=== PATIENT | female | born 1965 | race Caucasian/White ===

== ENCOUNTER 2025-02-23 10:04 | Outpatient (AMB) | payer MEDICAID, SELFPAY ==
--- OUTSIDE RECORDS SUMMARY | 2025-02-23 10:21 | XMS_ITS | Clinical Summary ---
Author Organization [employer] [facility] Address [address] [place] [address] Care Team Providers Care Patient Placement Coordinator Name Role Phone Carlos Alberto Sarkar MD Primary Care Provider Unavail able Surgical History Surgery Date Site/Laterality Comments TUBAL LIGATION 1991 PROCEDURE: HISTORICAL TUBAL LIGATION SECTION PROCEDURE: HISTORICAL DELIVERY; COMMENT: x 3 Medical History Medical History Date Comments Type II or unspecified type diabetes mellitus without mention of complication, uncontrolled DX:Type II or unspecified t ype diabetes mellitus without mention of complication, uncontrolled Chronic back pain DX:Chronic sunni k pain Dysthymic disorder DX:Dysthymic disorder HTN (hypertension) DX:HTN (hyper tension) Tobacco use DX:Tobacco use Hyperlipidemia DX:Hyperlipidemi a Vitamin D deficiency 06/03/2015 DX:Vitamin D deficiency Insomnia 06/03/2015 DX:Insomnia Anxiety DX:Anxiety; COMM ENT: dr mary hernandez and pilo PVD (peripheral vascular dis ease) ([facility] V24) DX:PVD (peripheral vascular disease) ([facility]); COMMENT: dr whipple DM (diabetes mellitus), type 2 with peripheral vascular complications ([facility]/H[facility] V24, [facility] V28) DX:DM (diabetes mellitus), type 2 with peripheral vascular complications ([facility]) COPD (chronic obstructive pu lmonary disease) ([facility] V24, [facility] V28) DX:COPD (chronic o bstructive pulmonary disease) ([facility]) Family History Medical History Relation Name Comments Diabetes Brother Hypertension Father Diabetes Mother HTN Cervical cancer Other grandmother Breast cancer Neg Hx Colon cancer Neg Hx Ovarian cancer Neg Hx Relation Name Status Comments Brother Father Mother Other Social History Tobacco Use Types Packs/Day Years [...] on file Sexual Orientation Not on file Obstetrics History Plan of Treatment Health Maintenance Due Date Last Done Comments Diabetes: Annual Foot Exam 1974 Diabetes: Annual Retina Eye Exam 1974 Zoster Vaccines (1 of 2) 2014 Pneumococcal Vaccine: 50+ Years (2 of 2 - PCV) 09/29/2018 09/29/2017 Pneumococcal Vaccine: Pediatrics (0 to 5 Years) and At-Risk Patients (6 to 64 Years) (2 of 2 - PCV) 09/29/2018 09/29/2017 Hepatitis B Vaccines (3 of 3 - 19+ 3-dose series) 09/10/2019 04/11/2019, 03/10/2019 Diabetes: Annual GFR (Glomerular Filtration Rate) 02/10/2020 02/09/2019 Breast Cancer Screening 05/26/2020 05/26/2018 Cervical Cancer Screening: P ap Smear 08/25/2021 08/25/2018 Colorectal Cancer Screening: Colonoscopy 08/08/2022 Depression Screening 08/08/2022 Hepatitis C Screening 08/08/2022 Social Influencers of Health Screening 08/08/2022 Diabetes: Annual Urine Albumin-Creatinine Ratio (uACR) 08/21/2022 02/09/2019 Diabetes: Blood Sugar Contro l Test (HGBA1C) 08/21/2022 02/09/2019 Hypertension/CHF/CAD Annual BMP Blood Test 08/21/2022 02/09/2019 Cholesterol Screening (Lipid Panel) 02/10/2024 02/09/2019, 02/09/2019 RSV Immunization Adult Patients (1 - Risk 60-74 years 1-dose series) 2024 COVID-19 Vaccine ( - 2023-2 5 season) 2024 Influenza Vaccine (Season Ended) 2025 08/03/2016, 06/05/2015 DTaP,Tdap,and Td Vaccines (2 - Td or Tdap) 05/03/2028 05/03/2018 HIV Screening Completed 02/09/2019 HIB Vaccines Aged Out No longer eligi ble based on patient's age to complete this topic HPV Vaccines Aged Out No longer eligi ble based on patient's age to complete this topic Hepatitis A Vaccines Aged Out No long er eligible based on patient's age to complete this topic IPV Vaccines Aged Out No longer eligi ble based on patient's age to complete this topic MMR Vaccines Aged Out No longer eligi ble based on patient's age to complete this topic Meningococcal ACWY Vaccine Aged Out N o longer eligible based on patient's age to complete this topic Meningococcal B Vaccine Aged Out No l onger eligible based on patient's age to complete this topic RSV Immunization Patients Under 20 months Aged Out No longer eligible b ased on patient's age to complete this topic Varicella Vaccines Aged Out No longer eligible based on patient's age to complete this topic Procedures Procedure Name Priority Date/Time Associated Diagnosis Comments PAP SMEAR Routine 08/25/2018 SCR MAMMO BI INCL CAD Routine 05/26/2018 11:31 AM EDT Encounter for screening mammogram for malignant neoplasm of breast from Last 3 Months or Most Recently Relevant to Health Maintenance Results * Pap smear (08/25/2018) 08/25/2018 Narrative HISTORICAL TESTING LAB RESULTING AGENCY - 08/29/2018 5:10 PM EST [id number] THINPREP PAP, IMAGED: NEGATIVE FOR SQUAMOUS INTRAEPITHELIAL LESION AND MALIGNANCY . NAIDA DENSON(ASCP) (CASE ELECTRONICALLY SIGNED 08 29 2018) RESULT OF APTIMA HIGH RISK HPV ASSAY: HIGH RISK HPV: NEGATIVE (SEROTYPES 16,18,31,33,35,39,45,51,52,56,58,59,66,68) COMPLETED ON 2018-08-29 ADEQUACY: SATISFACTORY ENDOCERVICAL/TRANSFORMATION ZONE COMPONENT PRESENT. SOURCE: THINPREP PAP HPV ANY DX: REFLEX 16 AND 18, CERVICAL, IMAGED CLINICAL INFORMATION: HPV ANY DIAGNOSIS. Z12.4, Z01.419, MENOPAUSE STENOTIC CERVICAL OS Emily Mabry MD LAB CYTOLOGY ORDERABLES Final Result HISTORICAL TESTING LAB RESULTING AGENCY * SCR MAMMO BI INCL CAD (05/26/2018 11:31 AM EDT) Anatomical Region Laterality Modality Radiographic Vicki ging 09/29/2017 1:40 PM EST Narrative 05/26/2018 3:43 PM EDT This is a summary report. The complete report is available in the patient's medical record. If you cannot access the medical record, please contact the sending organization for a detailed fax or copy. Full field digital screening mammography, reviewed with CAD and compared to previous. The breasts are composed of fatty and fibroglandular tissue. No suspicious mass, architectural distortion or suspicious calcifications are identified. IMPRESSION: : No mammographic evidence of malignancy. BIRADS 1-Negative; N. 5 year breast cancer risk assessment 0.7 % Lifetime breast cancer risk assessment 5.3 % Breast cancer risk category Low (<15%) Procedure Note Chantell Marin MD - 08/25/2022 This is a summary report. The complete report is available in thepatient's medical record. If you cannot access the medical record, pleasecontact the sending organization for a detailed fax or copy. Full field digital screening mammography, reviewed with CAD and comparedto previous. The breasts are composed of fatty and fibroglandular tissue.No suspicious mass, architectural distortion or suspicious calcificationsare identified. IMPRESSION: : No mammographic evidence of malignancy. BIRADS 1-Negative; N. 5 year breast cancer risk assessment 0.7 % Lifetime breast cancer risk assessment 5.3 % Breast cancer risk category Low (<15%) Ashley Page-Haleigh DO IMG XR PROCEDURES Final Result from Last 3 Months or Most Recently Relevant to Health Maintenance Care Teams Patient Placement Coordinator Relationship Specialty Start Date End Date Carlos Alberto Sarkar MD PCP - General Internal Medicine 01/03/18
--- NOTE | 2025-02-23 10:56 | A.SPINEOV_ITS ---
Intake Visit Reasons: sacroiilitis Intake Note: Ms. Bret Bell is here today c/o lower back pain. Recordings Librarian Required: Yes Recordings Librarian Services: Recordings Librarian Present Recordings Librarian Name: Myaa Quiroz LM Information Interpreted: clinical only Allergies No Known Allergies Allergy (Verified 02/23/25 11:06) Assessment & Plan Assessment & Plan (1) Chronic SI joint pain: Code(s): M53.3 - Sacrococcygeal disorders, not elsewhere classified; G89.29 - Other chronic pain Category: Medical Plan Dear Elizabeth, Thank you for referring Mrs Bret Bell to our office today. She is a 59-year-old diabetic female presents for evaluation of diffuse low back pain, that did respond to two subsequent SI joint blocks. I used my health coordinator Maya who is a certified supply chain specialist to help with this visit. The patient reports she has had the pain for a long time, she has had numerous rounds of conservative treatment. She has trialed physical therapy, Tylenol, ibuprofen, injections etc.. She seemed a little bit confused during today's office visit. She thought she was being referred here for surgery on her discs. She was told somewhere along the line that her discs are severely degenerative in that is the cause for her pain. She does describe diffuse back pain. She had a very hard time articulating exactly what was bothering her the most because she has pains all over her body. She also thought at 1 point she was here to discuss her wrist, she had a brace on her wrist in his not clear if she broke it or not but she wanted to discuss that as possible treatment options. PMH: She is a diabetic, has hypertension high cholesterol but has not seen a primary care physician in years. She ran into some problems with her son and has been unable to connect with the doctor for a long time. She currently takes no medication to treat any of these conditions. She is not sure if she has issues with her heart or her lungs are her kidneys. Social hx: She smoke cigarettes, does not use any alcohol or marijuana Medications: Right now she is just taking Tylenol and ibuprofen Allergies: None Physical exam: She walks with a cane she is slow to stand up and has some discomfort in her low back when she stands, she has pain with movement of her legs and thighs that give her pain, has a hard time with OCTAVIANO testing as it does reproduce some pain in her back. Imaging review: She is a lumbar MRI done at [facility] that I was unable to pull up and review, but the radiologist reports she has mild disc degeneration and some facet arthropathy at L4-5 that is been stable over the years. Impression: 59-year-old female presents for evaluation of chronic low back pain diffusely described as along both sides of her low back radiating up the middle of her spinal column. Her situation is a little confusing because she believes she was sent here to be considered for surgery on her lower back, specifically her disc because she was told they were severely degenerative at some point by someone. She was not clear or really having any understanding of what we were talking about when we reviewed the SI joint. She was convinced that she was here to see me about her discs. She did remember having the injections but did not really localize any of her pain to the SI joint. There was some degree of relief however with the injections. I told her that the SI joint could c ertainly be part of what is giving her pain on the left side where the injection was done but it would not explain diffuse pain all along her whole spinal column. She was a little disappointed that we are not going to offer her surgery on her discs, which only shows some mild degeneration. On top of this, she has not seen a primary doctor for very long time, is a diabetic and has history of hypertension high cholesterol and is currently on no medications to treat this. She has no clue what her A1c might be because she has not seen a doctor about her medical issues in quite some time. There is no way we could put her under anesthesia for an SI joint fusion until she is at least checked out by a primary care physician and we have some record of good control of her blood pressure and her A1c. I told her to connect with the provider and come back and see me down the road if her medical issues get treated again and we could reassess the situation. Thank you for allowing us to care for your patient. The total time spent with this visit with this patient was 45 minutes reviewing history, physical exam, lumbar imaging review, and implementation of treatment plan or further diagnostic testing David Painting MD,PhD [facility] Coding Level of Care Code New Pt Level 4 (22379) Diagnoses Chronic SI joint pain M53.3; G89.29
== END 2025-02-23 11:41 | disposition home or self-care (01) ==
PROVIDERS: PCP Nurse Practitioner Family; Referring Provider Nurse Practitioner Family; Visit Provider Physician Assistant
DX: M53.3 Sacrococcygeal disorders, not elsewhere classified (principal); G89.29 Other chronic pain
CPT/HCPCS: 99204

== ENCOUNTER → 2025-02-23 10:04 | Outpatient (BNVA) | payer MEDICAID, SELFPAY | PROVIDERS: PCP Nurse Practitioner Family; Referring Provider Nurse Practitioner Family; Visit Provider Physician Assistant | DX: M53.3 Sacrococcygeal disorders, not elsewhere classified (principal) | CPT/HCPCS: 99212 ==

== ENCOUNTER 2025-06-04 10:55 | Outpatient (REF) | payer MEDICAID, SELFPAY ==
--- OUTSIDE RECORDS SUMMARY | 2024-07-06 11:31 | XMS_ITS | Encounter Summary ---
Author Organization [facility] Address [address] [place] [address] Care Team Providers Care Master Control Supervisor Name Role Phone Carlos Alberto Srakar MD Primary Care Provider Unavail able Encounter Details Date Type Department Care Team ([facility] st Contact Info) Description 07/06/2024 11:31 AM EDT Hospital Encounter TH HISTORIC ENCOUNTERS EASTERN CONVERSION ONLY Fran Betancur, ZAC [address] [place] [id number] Social History Tobacco Use Types Packs/Day Years Used Date Smoking Tobacco: Every Day Cigarettes Smokeless Tobacco: Never Alcohol Use Standard Drinks/Week Comments No 0 (1 standard drink = 0.6 oz pur e alcohol) Comments Unknown Sex and Gender Information Value Date Recorded Sex Assigned at Not on file Legal Sex Female 6:19 PM EST Gender [...] AM EDT Narrative 07/06/2024 11:[address] [facility] Diagnostic Imaging Department [address] [place] [address] [id number] Patient: EMMA WATT /Age/Sex: 1965 - 59 - F Unit#: [id number] Location/Status: [facility]/REG CLI Mnemonic/[facility] Ordering Physician: FRAN BETANCUR APRN CR Hip [...] abnormality is seen. IMPRESSION: Normal examination. Code 56646 Dictating Physician: ASIM SCHUMACHER MD Electronically Signed by: ASIM SCHUMACHER MD Dic Date/Time: 07/06/24 115 Sign date/Time: 07/06/24 115 Procedure Note Asim Schumacher MD - 07/08/2024 [facility] Diagnostic Imaging Department [address] [place] [address] [id number] Patient: EMMA WATT /Age/Sex: 1965 - 59 - F Unit#: [id number] Location/Status: [facility]/REG CLI Mnemonic/[facility]ing [facility] Ordering Physician: FRAN BETANCUR APRN CR Hip [...] abnormality is seen. IMPRESSION: Normal examination. Code 85858 Dictating Physician: ASIM SCHUMACHER MD Electronically Signed by: ASIM SCHUMACHER MD Dic Date/Time: 07/06/24 115 Sign date/Time: 07/06/241157 Fran Betancur PATHOLOGIST ASSISTANT IMG XR PROCEDURES Final Result documented in this encounter Visit Diagnoses Not on filedocumented in this encounter Care Teams Master Control Supervisor Relationship Specialty Start Date End Date Carlos Alberto Sarkar MD PCP - General Internal Medicine 01/03/18 documented as of this encounter
--- OUTSIDE RECORDS SUMMARY | 2025-06-01 10:15 | XMS_ITS | Encounter Summary ---
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 Name Role Phone Kenyatta Morin MD Primary Care Provide r Reason for Referral * Imaging (Routine) - Authorized Specialty Diagnoses / Procedures Referred By Contac t Referred To Contact Radiology Diagnoses Encounter for screening mammogram for malignant neoplasm of breast Procedures BI Mammogram Screening Tomosynthesis Bilateral Kenyatta Morin MD [address] [place] [id number] Phone: tel: fax: [address] Phone: tel: fax: Referral ID Status Reason Start Date Expiration Date V isits Requested Visits Authorized [id number] Authorized 06/01/2025 06/01/2026 1 1 Encounter Details Date Type Department Care Team (Latest Contact Info) Description 06/01/2025 10:15 AM EDT Office Visit [facility] [address] [place] [address] [phone] Kenyatta Morin MD [address] [place] [address] [phone] Screening for colon cancer (Primary Dx); Dietary counseling; Exercise counseling; Encounter for screening mammogram for malignant neoplasm of breast; Chronic obstructive pulmonary disease, unspecified COPD type (CMS/HCC); DM (diabetes mellitus), type 2 with peripheral vascular complications (CMS/HCC); Chronic midline low back pain with bilateral sciatica; Fibromyalgia; Encounter for immunization Social History Tobacco Use Types Packs/Day Years Used Date Smoking Tobacco: Every Day Cigarettes Smokeless Tobacco: Never Tobacco Cessation:Ready to Q uit: Not Asked; Counseling Given: Not Answered Depression Answer Date Recorded Patient Health Questionnaire-9 Score 6 06/01/2025 Patient Health Questionnaire-9 Score 6 06/01/2025 Last PHQ-9: Questionnaire Data Not on file 0 06/01/2025 Housing Stability Answer Date Recorded What is your housing situation today? I have [place] espinal 06/01/[address] you li ve. Do you have problems with any of the following? I am not sure 06/01/2025 Food Insecurity Answer Date Recorded Within the past 12 months, y ou worried that your food would run out before you got money to buy more: Never True 06/01/2025 Within the past 12 months,th e food you bought just didn't last and you didn't have enough money to get more: Never True Transportation Answer Date Recorded In the past 12 months, has l ack of transportation kept you from medical appts, meetings, work or from getting things needed for daily living? No 06/01/2025 Utilities Answer Date Recorded In the past 12 months, has t he electric, gas, oil or water company threatened to shut off services in your home? No 06/01/2025 Depression Answer Date Recorded Patient Health Questionnaire-2 Score 2 06/01/2025 Internet Access Answer Date Recorded Internet Access Q1 Yes 06/01/2025 Internet Access Q2 Not on file 06/01/2025 Comments Unknown Sex and Gender Information Value Date Recorded Sex Assigned at Unknown 06/01/2025 10:18 AM EDT Legal Sex Female 9:25 PM EDT Gender Identity Choose not to disclose 10:18 AM EDT Sexual Orientation Don't know 06/01/2025 10 :18 AM EDT documented as of this encounter Last Filed Vital Signs Vital Sign Reading Time Taken Comments Blood Pressure 130/90 06/01/2025 10:38 AM EDT Pulse 71 06/01/2025 10:38 AM EDT Temperature 33.8 C (92.8 F) 06/01/2025 10:38 AM EDT Respiratory Rate 18 06/01/2025 10:3 8 AM EDT Oxygen Saturation 97% 06/01/2025 10: 38 AM EDT Inhaled Oxygen Concentration - - Weight 70.7 kg (155 lb 12.8 oz) 025 10:38 AM EDT Height 167.6 cm (5' 6 ) 06/01/2025 10:3 8 AM EDT Body Mass Index 25.15 06/01/2025 10:38 AM EDT documented in this encounter Functional Status * Over the past 2 weeks, how often have you been bothered by any of the following problems? Question Answer Date of Assessment Author Patient Health Questionnaire-2 Score 2 05/08 11:11 AM EDT Diamond Amado MA * Little interest or pleasure in doing things Answer Date of Assessment Author Several days 06/01/2025 11:11 AM EDT Lucian Amado MA * Feeling down, depressed, or hopeless Answer Date of Assessment Author Several days 06/01/2025 11:11 AM EDT Lucian Amado MA * Trouble falling or staying asleep, or sleeping too much Answer Date of Assessment Author Several days 06/01/2025 11:11 AM EDT Lucian Amado MA * Feeling tired or having little energy Answer Date of Assessment Author Several days 06/01/2025 11:11 AM EDT Lucian Amado MA * Poor appetite or overeating Answer Date of Assessment Author Several days 06/01/2025 11:11 AM Lucian Booth MA * Feeling bad about yourself - or that you are a failure or have let yourself or your family down Answer Date of Assessment Author Not at all 06/01/2025 11:11 AM Lucian Booth MA * Trouble concentrating on things, such as reading the newspaper or watching television Answer Date of Assessment Author Not at all 06/01/2025 11:11 AM Lucian Booth MA * Moving or speaking so slowly that other people could have noticed? Or the opposite - being so fidgety or restless that you have been moving around a lot more than usual. Answer Date of Assessment Author Several days 06/01/2025 11:11 AM SANDYT Lucian Amado MA * Thoughts that you would be better off or hurting yourself in some way Answer Date of Assessment Author Not at all 06/01/2025 11:11 AM Lucian Booth MA * Patient Health Questionnaire-9 Score Answer Date of Assessment Author 6 06/01/2025 11:11 AM Lucian Booth MA * Over the last 2 weeks, how often have you been bothered by any of the following problems? Question Answer Date of Assessment Author Feeling nervous, anxious, or on edge 3 05/08 11:11 AM Diamond Booth MA Not being able to stop or co ntrol worrying 3 06/01/2025 11:11 AM Diamond Booth MA Worrying too much about diff erent things 2 06/01/2025 11:11 AM Diamond Booth MA Being so restless that it is hard to sit still 3 06/01/2025 11:11 AM Diamond Booth MA Becoming easily annoyed or irritable 2 05/08 11:11 AM Diamond Booth MA Feeling afraid as if somethi ng awful might happen 0 06/01/2025 11:11 AM Diamond Booth MA documented as of this encounter Progress Notes * Kenyatta Parkinson MD - 06/01/2025 10:15 AM EDT SUBJECTIVE: Emma Bell is a 60 y.o. year old adult who presents for New patient . Occupation:disability Lives with:alone - EtOH denies - smoking cigarettes 7 daily - recreational drug use denies Diet:regular Exercise:sedentary Surgeries/Hospitalizations: c-sections X3 Mammogram: not done in a long time Colorguard: ordered today PMHx:chronic lower back pain, neuropathy, chronic sinusitis, depression with anxiety, fibromyalgia,diabetes, COPD, venous insufficiency Medications: gabapentin 300mg at bed time, zolpidem, sertraline 50mg daily FMHx:son has schizophrenia, mother diabetes Immunizations: Reviewed Acute Concerns: Patient reports she has not being taking care of her for a long time know, she tells me she was taking cre of her son and this is the reason why she stop coming to her appointments Patient tells me she has being having acute on chronic pain of her lower back she has being taking acetaminophen and ibuprofen but has not help, she takes gabapentin at night and helps but makes her sleepy, she used to be follow by pain management Social History Social History Narrative Not on file Problem List[1] Family History[2] Review of Systems Constitutional: Negative. HENT: Negative. Respiratory: Negative. Cardiovascular: Negative. Musculoskeletal: Positive for arthralgias, back pain and myalgias. OBJECTIVE: Vitals: 06/01/25 1038 BP: (!) 130/90 BP Location: Left arm Patient Position: Sitting BP Cuff Size: Adult Pulse: 71 Resp: 18 Temp: 92.8 ??F (33.8 ??C) TempSrc: Temporal SpO2: 97% Weight: 155 lb 12.8 oz (70.7 kg) Height: 5' 6 (1.676 m) Physical Exam Constitutional: Appearance: Normal appearance. Cardiovascular: Rate and Rhythm: Normal rate and regular rhythm. Pulmonary: Effort: Pulmonary effort is normal. Breath sounds: Normal breath sounds. Abdominal: General: Abdomen is flat. Palpations: Abdomen is soft. Musculoskeletal: Right lower leg: No edema. Left lower leg: No edema. Neurological: Mental Status: Emma is alert. Follow Up: Follow up for next available PAP smear . Medications Ordered Prior to Encounter[3] Problem List Items Addressed This Visit Encounter for screening mammogram for malignant neoplasm of breast Relevant Orders BI Mammogram Screening Tomosynthesis Bilateral Chronic obstructive pulmonary disease, unspecified COPD type ([facility]/HCC) Stable I prescribed albuterol PRN Relevant Medications albuterol 108 (90 Base) MCG/ACT inhaler DM (diabetes mellitus), type 2 with peripheral vascular complications ([facility]/HCC) A1c 6.7 -Changes: I start her again on metformn 500mg BID and prescribed diabetes supplies - Diabetic eye exam:pending - Diabetic foot exam:pending - Continue lifestyle modifications - Continue current medications - Follow up: 3 months Relevant Medications metFORMIN (Glucophage) 500 MG tablet FREESTYLE LITE test strip Lancets misc Alcohol Swabs 70 % pads Blood Glucose Monitoring Suppl (FreeStyle [place] Lite) w/Device kit Other Relevant Orders CBC auto differential Comprehensive Metabolic Panel HIV-1/2 Antigen and Antibodies, Fourth Generation, with Reflexes Hepatitis C Antibody with Reflex to HCV, RNA, Quantitative, Real-Time PCR Lipid Panel, Standard Vitamin D, 25-Hydroxy, Total, Immunoassay TSH with Reflex to Free T4 POCT Glucose POCT Hgb A1c Chronic midline low back pain with bilateral sciatica I will start her on gabapentin low dose 100mg morning and afternoon she may continue with gabapentin 300mg at bed time Relevant Medications gabapentin (Neurontin) 100 MG capsule Fibromyalgia Relevant Medications gabapentin (Neurontin) 100 MG capsule Other Visit Diagnoses Screening for colon cancer - Primary Relevant Orders Cologuard?? colon cancer screening Dietary counseling Relevant Medications metFORMIN (Glucophage) 500 MG tablet Exercise counseling Relevant Medications metFORMIN (Glucophage) 500 MG tablet Encounter for immunization Relevant Orders PCV-20 VACCINE 6 wks + (Completed) [1] Patient Active Problem List Diagnosis Encounter for screening mammogram for malignant neoplasm of breast Chronic obstructive pulmonary disease, unspecified COPD type (CMS/HCC) DM (diabetes mellitus), type 2 with peripheral vascular complications (CMS/HCC) Chronic midline low back pain with bilateral sciatica Fibromyalgia [2] No family history on file. [3] No current outpatient medications on file prior to visit. No current facility-administered medications on file prior to visit. documented in this encounter Miscellaneous Notes * Assessment & Plan Note - Kenyatta Parkinson MD - 06/01/2025 4:24 PM EDT Associated Problem(s): Chronic obstructive pulmonary disease, unspecified COPD type (CMS/HCC) Stable I prescribed albuterol PRN * Assessment & Plan Note - Kenyatta Parkinson MD - 06/01/2025 4:24 PM EDT Associated Problem(s): Chronic midline low back pain with bilateral sciatica I will start her on gabapentin low dose 100mg morning and afternoon she may continue with gabapentin 300mg at bed time * Assessment & Plan Note - Kenyatta Parkinson MD - 06/01/2025 4:23 PM EDT Associated Problem(s): DM (diabetes mellitus), type 2 with peripheral vascular complications (CMS/HCC) A1c 6.7 -Changes: I start her again on metformn 500mg BID and prescribed diabetes supplies - Diabetic eye exam:pending - Diabetic foot exam:pending - Continue lifestyle modifications - Continue current medications - Follow up: 3 months documented in this encounter Plan of Treatment Upcoming Encounters Date Type Department Care Team (Late st Contact Info) Description 08/10/2025 9:45 AM EST Procedure Visit [facility] [address] [place] [address] Kenyatta Morin MD [address] [place], [place] [phone] Scheduled Orders Name Type Priority Associated Diagnoses Orde r Schedule BI Mammogram Screening Tomosynthesis Bilateral Imaging Routine Encounter for screening mammogram for malignant neoplasm of breast Expected: 06/01/2025, Expires: 08/01/2026 Cologuard colon cancer screening Lab Routine Screening for colon cancer Ordered: 06/01/2025 CBC auto differential Lab Routine DM (diabetes mellitus), type 2 with peripheral vascular complications (CMS/HCC) Expected: 06/01/2025 (Approximate), Expires: 06/01/2026 Comprehensive Metabolic Panel Lab Routine DM (diabetes mellitus), type 2 with peripheral vascular complications (CMS/HCC) Expected: 06/01/2025 (Approximate), Expires: 06/01/2026 HIV-1/2 Antigen and Antibodies, Fourth Generation, with Reflexes Lab Routine DM (diabetes mellitus), type 2 with peripheral vascular complications (CMS/HCC) Expected: 06/01/2025 (Approximate), Expires: 06/01/2026 Hepatitis C Antibody with Reflex to HCV, RNA, Quantitative, Real-Time PCR Lab Routine DM (diabetes mellitus), type 2 with peripheral vascular complications (CMS/HCC) Expected: 06/01/2025, Expires: 06/01/2026 Lipid Panel, Standard Lab Routine DM (diabetes mellitus), type 2 with peripheral vascular complications (CMS/HCC) Expected: 06/01/2025 (Approximate), Expires: 06/01/2026 Vitamin D, 25-Hydroxy, Total, Immunoassay Lab Routine DM (diabetes mellitus), type 2 with peripheral vascular complications (CMS/HCC) Expected: 06/01/2025 (Approximate), Expires: 06/01/2026 TSH with Reflex to Free T4 Lab Routine DM (diabetes mellitus), type 2 with peripheral vascular complications (CMS/HCC) Expected: 06/01/2025 (Approximate), Expires: 06/01/2026 POCT Glucose Point of Care Testing Routine DM (diabetes mellitus), type 2 with peripheral vascular complications (CMS/HCC) Ordered: 06/01/2025 POCT Hgb A1c Point of Care Testing Routine DM (diabetes mellitus), type 2 with peripheral vascular complications (CMS/HCC) Ordered: 06/01/2025 documented as of this encounter Visit Diagnoses Diagnosis Screening for colon cancer- Primary Special screening for malignant neoplasms, colon Dietary counseling Dietary surveillance and counseling Exercise counseling Encounter for screening mammogram for malignant neoplasm of breast Chronic obstructive pulmonary disease, unspecified COPD type (CMS/HCC) (HCC) DM (diabetes mellitus), type 2 with peripheral vascular complications (HCC) Type II or unspecified type diabetes mellitus with peripheral circulatory disorders, not stated as uncontrolled Chronic midline low back pain with bilateral sciatica Fibromyalgia Unspecified myalgia and myositis Encounter for immunization documented in this encounter Additional Health Concerns Assessment Noted Time PHQ-9 Depression Total Score: 6 06/01/20 25 11:11 AM EDT documented as of this encounter Care Teams Sewing Machine Operator Plastic Zipper Relationship Specialty Start Date End Date Kenyatta Morin MD [address] [place] [id number] PCP - General Internal Medicine 06/01/25 documented as of this encounter
--- OUTSIDE RECORDS SUMMARY | 2025-06-04 12:28 | XMS_ITS | Clinical Summary ---
Author Organization [employer] Address [address] [facility] [address] [place] [address] Care Team Providers Care Smash Piecer Name Role Phone Kenyatta Morin MD Primary Care Provide r Allergies No known active allergies Medications albuterol 108 (90 Base) MCG/ACT inhalerIndications :Chronic obstructive pulmonary disease, unspecified COPD type (CMS/HCC) (HCC) Inhale 2 puffs every 4 (four) hours if needed for wheezing. 18 g 2 5 06/01/20 Active gabapentin (Neurontin) 100 MG capsuleIndications :Chronic midline low back pain with bilateral sciatica Take 1 capsule (100 mg) by mouth 2 times daily. 60 capsule 2 5 06/01/20 Active metFORMIN (Glucophage) 500 MG tabletIndications: DM (diabetes mellitus), type 2 with peripheral vascular complications (HCC) Take 1 tablet (500 mg) by mouth with breakfast and with evening meal. 60 tablet 11 5 06/01/20 Active FREESTYLE LITE test stripIndications:D M (diabetes mellitus), type 2 with peripheral vascular complications (HCC) Use to test blood sugar 1 times daily 100 each 12 5 06/01/20 Active Lancets miscIndications:DM (diabetes mellitus), type 2 with peripheral vascular complications (HCC) Use to test blood sugar 1 times daily 100 each 5 Active Alcohol Swabs 70 % padsIndications:DM (diabetes mellitus), type 2 with peripheral vascular complications (HCC) Use to test blood sugar 1 times daily 100 each 5 Active Blood Glucose Monitoring Suppl (FreeStyle [place] Lite) w/Device kitIndications:DM (diabetes mellitus), type 2 with peripheral vascular complications (HCC) Use to test blood sugar 1 times daily 1 kit 5 Active Active Problems Problem Noted Date Diagnosed Date Encounter for screening mamm ogram for malignant neoplasm of breast 06/01/2025 Chronic obstructive pulmonar y disease, unspecified COPD type (CMS/HCC) 06/01/2025 Assessment & Plan (06/01/2025 4:24 PM EDT): Stable I prescribed albuterol PRN DM (diabetes mellitus), type 2 with peripheral vascular complications 06/01/2025 Assessment & Plan (06/01/2025 4:23 PM EDT): A1c 6.7 -Changes: I start her again on metformn 500mg BID and prescribed diabetes supplies - Diabetic eye exam:pending - Diabetic foot exam:pending - Continue lifestyle modifications - Continue current medications - Follow up: 3 months Chronic midline low back pain with bilateral sci atica 06/01/2025 Assessment & Plan (06/01/2025 4:24 PM EDT): I will start her on gabapentin low dose 100mg morning and afternoon she may continue with gabapentin 300mg at bed time Fibromyalgia 06/01/2025 Encounters Date Type Department Care Team Description 06/01/2025 10:15 AM EDT Office Visit [facility] [address] [place] [address] Kenyatta Morin MD Screening for colon cancer (Primary Dx); Dietary counseling; Exercise counseling; Encounter for screening mammogram for malignant neoplasm of breast; Chronic obstructive pulmonary disease, unspecified COPD type (CMS/HCC); DM (diabetes mellitus), type 2 with peripheral vascular complications (CMS/HCC); Chronic midline low back pain with bilateral sciatica; Fibromyalgia; Encounter for immunization 06/01/2025 Travel 06/01/2025 Telephone [facility] [address] [place] [address] Roslyn Aranda MD New Patient appt 03/27/2025 Population Health Risk Score [facility] ([facility] Department [address] [place] [phone] Provider, Population Health Generic from Last 3 Months Immunizations Immunization Administration Dates Next Due Hep B, adult 04/11/2019,03/10/2019 Influenza, IIV3, injectable 08/03/2016, 5 Influenza, seasonal, injectable, preservative fr ee 08/03/2016,06/05/2015 Pneumococcal Conjugate PCV 20 06/01/2025 Pneumococcal Polysaccharide PPSV23 09/29/2017 Tdap 05/03/2018 Social History Tobacco Use Types Packs/Day Years [...] Don't know 06/01/2025 10 :18 AM EDT Last Filed Vital Signs Vital Sign Reading [...] Mass Index 25.15 06/01/2025 10:38 AM EDT Plan of Treatment Upcoming Encounters Date Type Department Care Team (Late st Contact Info) Description 08/10/2025 9:45 AM EST Procedure Visit [facility] [address] [place] [address] Kenyatta Morin MD [address], [place] [phone] Health Maintenance Due Date Last Done Comments CT Colonography 1964 Colonoscopy 1964 Colorectal Cancer Screening 1964 Diabetes: Hemoglobin A1C 1964 FIT DNA/Cologuard 1964 FIT 1964 FOBT 1964 Lipid Panel 1964 Sigmoidoscopy 1964 Disability Screening 1964 Diabetes: Foot Exam 1974 Eye Exam 1974 Hepatitis C Screening 1982 Diabetes: Urine Protein Screening 1983 Pap Smear 1985 Cervical Cancer Screening 1994 HPV/Cotest 1994 Mammogram 2004 Zoster Vaccines (1 of 2) 2014 Hepatitis B Vaccines (3 of 3 - 19+ 3-dose series) 09/10/2019 04/11/2019, 03/10/2019 RSV Patients and Patients Aged 60 years or older (1 - Risk 60-74 years 1-dose series) 2024 COVID-19 Vaccine ( season) 2025 Influenza Vaccine (#1) 2025 6, 08/03/2016, 06/05/2015, Additional history exists Alcohol/Substance Use Screening 06/01/2026 06/01/2025 Depression Screening 06/01/2026 06/01/2025, 06/01/20 25 SDOH Screening 06/01/2026 06/01/2025 Tobacco Screening 06/01/2026 06/01/2025 DTaP/Tdap/Td Vaccines (2 - Td or Tdap) 05/03/2028 05/03/2018 HIV Screening Completed 02/09/2019 Pneumococcal Vaccine: 50+ Years Completed 06/01/2025, 09/29/2017 HIB Vaccines Aged Out No longer eligi [...] patient's age to complete this topic Meningococcal Vaccine Aged Out No chris robbie eligible based on patient's age to complete this topic RSV under 20 months Aged Out No longe r eligible based on patient's age to complete this topic Rotavirus Vaccines Aged Out No longer eligible based on patient's age to complete this topic Insurance [facility] C3 Care Teams Smash Piecer Relationship Specialty Start Date End Date Kenyatta Morin MD [address] [place] [id number] PCP - General Internal Medicine 9/26/25
--- OUTSIDE RECORDS SUMMARY | 2025-06-04 12:28 | XMS_ITS | Clinical Summary ---
Author Organization [facility] Address [address] [place] [address] Care Team Providers Care Estimator And Drafter Name Role Phone Vita Lee MIXED LIVESTOCK FARM WORKER Primary Care Provider [phone] Source Comments PLEASE NOTE, if this patient is a minor, it may be UNLAWFUL to discuss sensitive information that is contained in these records (such as FAMILY PLANNING, MENTAL HEALTH or SUBSTANCE ABUSE) with the minor patient's parent or other person without the patient's specific authorization.[facility] Allergies No known active allergies Medications insulin syringe-needle U-100 0.5 mL 31 gauge x 01/19 1 Syringe by NOT APPLICABLE route 8 Active buPROPion HCl (WELLBUTRIN XL) 150 mg 24 hr tablet 8 Active fluticasone propionate (FLONASE) 50 mcg/actuation nasal spray 2 sprays each nostril twice daily x 1 week then once daily as needed. 8 Active FREESTYLE LITE STRIPS strips U TO TEST BLOOD SUGAR TID 4 9 Active fluticasone propionate (FLOVENT HFA) 110 mcg/actuation inhalerIndication s:Chronic obstructive pulmonary disease, unspecified COPD type (CMS & HHS-HCC) Inhale 1 Puff into the lungs 2 (two) times daily Rinse mouth after use 1 Inhaler 1 9 Active albuterol sulfate 90 mcg/actuation inhalerIndication s:Chronic obstructive pulmonary disease, unspecified COPD type (CMS & HHS-HCC) Inhale 2 Puffs into the lungs every 4 (four) hours as needed for shortness of breath or wheezing 1 Inhaler 1 9 Active gabapentin (NEURONTIN) 100 mg capsuleIndication s:Chronic bilateral low back pain without sciatica Take 1 Cap by mouth 3 (three) times daily For nerve pain 60 Cap 9 Active metFORMIN (GLUCOPHAGE) 1,000 mg tabletIndications :Uncontrolled type 2 diabetes mellitus with hyperglycemia ([facility]) Take 1 Tab by mouth 2 (two) times daily with a meal 180 Tab 1 0 Active fluticasone furoate (ARNUITY ELLIPTA) 100 mcg/actuation dsdv Inhale 1 Puff into the lungs 9 Active glipiZIDE (GLUCOTROL) 5 mg tabletIndications :Uncontrolled type 2 diabetes mellitus with hyperglycemia ([facility]) Take 1 Tab by mouth 2 (two) times daily with a meal For diabetes 60 Tab 2 0 Active omeprazole (PRILOSEC) [address] capsuleIndication s:Acute superficial gastritis without hemorrhage Take 1 Cap by mouth 2 (two) times daily before a meal For gastritis 60 Cap 2 0 Active alum-mag hydroxide-simeth (MAALOX PLUS) 400-400-40 mg/5 mL suspensionIndicat ions:Acute superficial gastritis without hemorrhage Take 15 mL by mouth every 8 (eight) hours as needed for indigestion 335 mL 2 0 Active atorvastatin (LIPITOR) 80 mg tabletIndications :Hypercholesterol emia TOME RODOLFO TABLETA POR VIA ORAL [place] (FOR CHOLESTEROL) 30 Tab 2 0 Active sertraline (ZOLOFT) 100 mg tablet Take 100 mg by mouth once daily 3 Active zolpidem (AMBIEN) 5 mg tablet Take 5 mg by mouth nightly at bedtime as needed 3 Active methocarbamoL (ROBAXIN) 750 mg tabletIndications :Chronic left-sided low back pain with left-sided sciatica Take 1 Tablet by mouth 3 (three) times daily 30 Tablet 3 Active meloxicam (MOBIC) 15 mg tabletIndications :Chronic left-sided low back pain with left-sided sciatica Take 1 Tablet by mouth once daily 90 Tablet 3 Active Active Problems Problem Noted Date Diagnosed Date Uncontrolled type 2 diabetes mellitus with hyperglycemia ([facility]) 05/29/2020 Dysthymic disorder 01/18/2019 Type II diabetes mellitus wi th peripheral circulatory disorder ([facility]) 01/18/2019 Tobacco use 01/18/2019 Chronic back pain 01/18/2019 Vitamin D deficiency 06/03/2015 PVD (peripheral vascular disease) ([facility] V24) Overview (01/18/2019): Left varicose vein: surgery in past. Insomnia Hyperlipidemia Diabetes mellitus type 2, insulin dependent ([facility]) Fibromyalgia Depression COPD (chronic obstructive pu lmonary disease) ([facility]) Chronic low back pain Overview (01/18/2019): Herniated disk. No record from pain DrLidia Used to take tramadol from [facility]. No Xray found in [facility] record in Epic. Assessment & Plan (01/18/2019 10:10 AM EDT): Stop tramadol. Start diclofenac. Ref to pain management. Breast cancer screening Overview (01/18/2019): SCR MAMMO BI INCL CAD (05/26/2018 11:31 AM) SCR MAMMO BI INCL CAD (05/26/2018 11:31 AM) Impressions : No mammographic evidence of malignancy. Immunizations Immunization Administration Dates Next Due Hep B, Adult/Adol (OAUXZTN-F-QNDHB/RECOMBIVAX-AD ULT) 04/11/2019,03/10/2019 INFLUENZA, SEASONAL, INJECTABLE 08/03/2016,06/05 PNEUMOCOCCAL POLYSACCHARIDE PPV23 (Pneumovax 23) 09/29/2017 TDAP 05/03/2018 Family History Medical History Relation Name Comments Diabetes Brother Hypertension Father Cancer Maternal Grandmother Hypertension Mother Relation Name Status Comments Brother Father Maternal Grandmother cervica l Mother Social History Tobacco Use Types Packs/Day Years Used Date Smoking Tobacco: Every Day Cigarettes Smokeless Tobacco: Never Tobacco Cessation:Ready to Q uit: Not Asked; Counseling Given: Not Answered Alcohol Use Standard Drinks/Week Comments Not Currently 0 (1 standard drink = 0.6 oz pur e alcohol) Social Connections Answer Date Recorded Connectedness 0 05/27/2024 Financial Resource Strain Answer Date R ecorded Financial Resource Strain 0 2018 Stress Answer Date Recorded Stress 0 05/01/2019 Physical Activity Answer Date Recorded Physical Activity 0 05/01/2019 Food Insecurity Answer Date Recorded Food 0 06/01/2024 Transportation Needs Answer Date Record ed Transportation 0 05/01/2019 Housing Stability Answer Date Recorded Housing 0 05/01/2019 Safety and Environment Answer Date Yasmani rded Safety 0 05/01/2019 Utilities Answer Date Recorded Utilities 0 05/01/2019 Employment Answer Date Recorded Stress 0 05/27/2024 Comments No Sex and Gender Information Value Date Recorded Sex Assigned at Female 01/18/2019 6:10 AM PDT Legal Sex Female 8:37 AM PDT Gender Identity Female 01/18/2019 6:10 AM PDT Sexual Orientation Straight 01/18/2019 6: 10 AM PDT Last Filed Vital Signs Vital Sign Reading Time Taken Comments Blood Pressure 112/70 03/11/2023 12:59 PM EDT Pulse 70 03/11/2023 12:59 PM EDT Temperature 36.9 C (98.5 F) 03/11/2023 12:59 PM EDT Respiratory Rate 18 03/11/2023 12:59 PM EDT Oxygen Saturation 98% 03/11/2023 12:59 PM EDT Inhaled Oxygen Concentration - - Weight 72.2 kg (159 lb 1.6 oz) 03/11/2023 12:59 PM EDT Height 167.6 cm (5' 6 ) 03/10/2019 9:42 AM EDT Body Mass Index 25.68 03/10/2019 9:42 AM EDT Plan of Treatment Health Maintenance Due Date Last Done Comments Anxiety Screening 1964 Dental Examination 1964 Diabetes Foot Exam 1964 HPV Screening 1964 Pap + HPV 1964 Tobacco Cessation Counseling (#1) 1964 Tobacco Screening 1964 Retinopathy Screening 1977 Cervical Cancer Screening 1985 Pap Smear 1985 Breast Cancer Screening (Mammogram) 2004 CT Colonography 2009 Colonoscopy 2009 Colorectal Cancer Screening 2009 FIT/gFOBT 2009 Fecal DNA 2009 Flexible Sigmoidoscopy 2009 Imm-Zoster, Recombinant (1 of 2) 2014 Imm-Pneumococcal 50+ (2 of 2 - PCV) 09/29/201809/29 Depression Monitoring 04/20/2019 01/18/2019 Hemoglobin A1c 08/11/2019 02/09/2019 Imm-Hepatitis B (3 of 3 - 19 + 3-dose series) 09/10/2019 04/11/2019, 03/10/2019 Lipid Screening 02/10/2020 02/09/2019 Serum Creatinine 02/10/2020 02/09/2019 Urine Albumin Creatinine Ratio Screening 02/10/2020 02/09/2019 Hypertension Screening (#1) 03/10/2024 Alcohol and Drug Screen 09/06/2024 01/18/2019 Hpc-[id number]-23 ( season) 2025 Imm-Influenza (#1) 2025 08/03/2016, 06/05/2015 Imm-DTaP/Tdap/Td (2 - Td or Tdap) 05/03/2028 018 HIV Screening Completed 02/09/2019 Hepatitis C Screening Completed 02/09/2019 Cervical Ablation/Cold-Knife Conization Discontinued Cervical Cryotherapy Discontinued Colposcopy Discontinued Endometrial Biopsy Discontinued Excision/Leep Discontinued HPV Genotyping Discontinued Vaginal Pap Discontinued Vulvoscopy Discontinued Procedures Procedure Name Priority Date/Time Associated Diagnosis Comments ANTIBODY HIV-1&HIV-2 SINGLE RESULT Routine 02/09/2019 10:26 AM EDT Uncontrolled type 2 diabetes mellitus with hyperglycemia (HCC-CMS) COMPREHENSIVE METABOLIC PANEL Routine 02/09/2019 10:26 AM EDT Uncontrolled type 2 diabetes mellitus with hyperglycemia (HCC-CMS) HEPATITIS A,B,C PANEL Routine 02/09/2019 10:26 AM EDT Uncontrolled type 2 diabetes mellitus with hyperglycemia (HCC-CMS) LIPID PANEL Routine 02/09/2019 10:26 AM EDT Uncontrolled type 2 diabetes mellitus with hyperglycemia (HCC-CMS) HEMOGLOBIN GLYCOSYLATED A1C Routine 02/09/2019 10:26 AM EDT Uncontrolled type 2 diabetes mellitus with hyperglycemia (HCC-CMS) MICROALBUMIN/CREATINI NE RATIO, URINE, RANDOM Routine 02/09/2019 10:22 AM EDT Uncontrolled type 2 diabetes mellitus with hyperglycemia (HCC-CMS) from Last 3 Months or Most Recently Relevant to Health Maintenance Results * HEPATITIS A,B,C PANEL (02/09/2019 10:26 AM EDT) HEPATITIS B SURFACE ANTIBODY NEGATIVE NEGATIVE [facility] HEPATITIS B SURFACE ANTIGEN NEGATIVE NEGATIVE [facility] Comment: Over the counter supplements containing high doses of biotin may interfere with this assay. If interference is suspected, patients shoud be retested after refraining from biotin supplements for 72 hours. HEPATITIS C VIRUS DIAGNOSTIC NEGATIVE NEGATIVE [facility] Blood specimen (specimen) Blood / Unknown 02/09/2019 10:26 AM EDT 02/09/2019 4:43 PM EDT [facility] - 02/09/2019 6:26 PM EDT [employer], [place] [address] Psychology Physician - Mirian Mckeon MD PT ID [id number] ORD# [id number] Vita Lee [facility] - BLOOD DRAW Edited [place] [address], * HIV-1 & HIV-2 ANTIBODIES (02/09/2019 10:26 AM EDT) Pathologist [facility] HIV 1 AND 2 ANTIBODY SCREEN NEGATIVE NEGATIVE [facility] Comment: This assay is a 4th generation assay allowing for earlier detection of HIV infection by detecting the presence of the HIV-1 p24 antigen as well as the traditional antibodies to HIV type 1 (including group O) and type 2. Use of a 4th generation assay is the current CDC recommendation for HIV screening. Blood specimen (specimen) Blood / Unknown 02/09/2019 10:26 AM EDT 02/09/2019 4:43 PM EDT [facility] - 02/09/2019 6:55 PM EDT [facility], a member of [address] [address] Psychology Physician - Mirian Mckeon MD PT ID [id number] ORD# [id number] Vita Lee [employer] [facility] - BLOOD DRAW Final Result [address] [address], * (ABNORMAL) HEMOGLOBIN, GLYCOSYLATED (A1C) (02/09/2019 10:26 AM EDT) GLYCATED HEMOGLOBIN A1C 7.6(H) <6.5 % [facility] ESTIMATED AVERAGE GLUCOSE 171 mg/dL [facility] Blood specimen (specimen) Blood / Unknown 02/09/2019 10:26 AM EDT 02/09/2019 4:43 PM EDT Narrative [facility] - 02/09/2019 8:33 PM EDT [facility], a member of [address] [address] Psychology Physician - Mirian Mckeon MD PT ID [id number] ORD# [id number] Vita Gurosibel [facility] - BLOOD DRAW Final Result [address] [address], * LIPID PANEL (02/09/2019 10:26 AM EDT) CHOLESTEROL 182 0 - 200 mg/dL [facility] TRIGLYCERIDES 115 0 - 150 mg/dL [facility] HDL CHOLESTEROL 61 >40 mg/dL [facility] LDL CALCULATED 98 0 - 100 mg/dL [facility] TC-HDLC RATIO 3.0 0 - 4.4 mg/dL [facility] Blood specimen (specimen) Blood / Unknown 02/09/2019 10:26 AM EDT 02/09/2019 4:43 PM EDT Narrative [facility] - 02/09/2019 6:05 PM EDT [facility], a member of [address] [address] Psychology Physician - Mirian Mckeon MD PT ID [id number] ORD# [id number] Vita Lee [employer] [facility] - BLOOD DRAW Edited Result - Final [address] [address], * (ABNORMAL) COMPRE METAB PANEL (CMP) (02/09/2019 10:26 AM EDT) GLUCOSE 164(H) 70 - 100 mg/dL [facility] Comment:Reference range appl icable to fasting specimens only BUN 13 5 - 25 mg/dL [facility] CREAT 0.93 0.5 - 1.1 mg/dL [facility] GLOMERULAR FILTRATION RATE > 60 [facility] Comment: If patient is -Macedonian, multiply result by 1.21 Chronic Kidney Disease: < 60 ml/min/1.73 square meters Kidney Failure: < 15 ml/min/1.73 square meters SODIUM 138 133 - 145 mmol/L [facility] POTASSIUM 4.2 3.5 - 5.5 mmol/L [facility] CHLORIDE 104 96 - 110 mmol/L [facility] CO2 27 21 - 32 mmol/L [facility] ANION GAP 7 3 - 11 [facility] CALCIUM 9.6 8.5 - 10.5 mg/dL [facility] TOTAL PROTEIN 7.3 6.0 - 8.0 G/dL [facility] ALBUMIN 4.0 3.2 - 5.0 G/dL [facility] BILI, TOTAL 0.4 0.0 - 1.4 mg/dL [facility] SGOT 22 10 - 42 U/L [facility] SGPT 26 10 - 60 U/L [facility] ALK PHOS 113 42 - 121 U/L [facility] Blood specimen (specimen) Blood / Unknown 02/09/2019 10:26 AM EDT 02/09/2019 4:43 PM EDT [facility] - 02/09/2019 6:05 PM EDT [facility], a member of [address] [address] Psychology Physician - Mirian Mckeon MD PT ID [id number] ORD# [id number] Vitapapo Lee [facility] - BLOOD DRAW Edited Result - Final Performing Organization Address City/[facility]/ZIP Co de Phone Number [address] [address], [place] [phone] * MICROALBUMIN/CREATININE RATIO, URINE, RANDOM (02/09/2019 10:22 AM EDT) CREATININE, RANDOM URINE 78 mg/dL [facility] Urine specimen (specimen) Urine specimen / Unknown 02/09/2019 10:22 AM EDT 02/09/2019 4:[address] [facility] - 02/09/2019 6:17 PM EDT [facility], a member of [address] [address] Psychology Physician - Mirian Mckeon MD PT ID [id number] ORD# [id number] Vita Lee [employer] [facility] URINE AMBULATORY Final Res ult [address] [address], [place] [phone] from Last 3 Months or Most Recently Relevant to Health Maintenance Insurance [facility] Care Teams Estimator And Drafter Relationship Specialty Start Date End Date Vita Lee FNP [facility] [place] [address] PCP - General Internal Medicine 01/11/19
--- OUTSIDE RECORDS SUMMARY | 2025-06-04 12:28 | XMS_ITS | Encounter Summary ---
Author Organization [employer] Address [address] [place] [address] Care Team Providers Care Building Construction Ironworker Name Role Phone Kenyatta Morin MD Primary Care Provide r Reason for Visit * Reason Onset Date Comments New Patient appt 06/01/2025 Encounter Details Date Type Department Care Team (Late st Contact Info) Description 06/01/2025 Telephone [facility] [address] [place], [place] [phone] Roslyn Aranda MD [address] [place], [place] [phone] New Patient appt Social History Tobacco Use Types Packs/Day Years Used Date Smoking Tobacco: Every Day Cigarettes Smokeless Tobacco: Never Depression Answer Date Recorded Patient Health Questionnaire-9 [...] AM EDT documented as of this encounter Functional Status * Over the past 2 weeks, how often have you been bothered by any of the following problems? Question Answer Date of Assessment Author Patient Health Questionnaire-2 Score 2 05/08 11:11 AM SANDYT Diamond Amado MA * Little interest or pleasure in doing things Answer Date of Assessment Author Several days 06/01/2025 11:11 AM SANDYT Lucian Amado MA * Feeling down, depressed, or hopeless Answer Date of Assessment Author Several days 06/01/2025 11:11 AM SANDYT Lucian Amado MA * Trouble falling or staying asleep, or sleeping too much Answer Date of Assessment Author Several days 06/01/2025 11:11 AM Lucian Booth MA * Feeling tired or having little energy Answer Date of Assessment Author Several days 06/01/2025 11:11 AM Lucian Booth MA * Poor appetite or overeating Answer [...] 11:11 AM EDT Lucian Amado MA * Thoughts that you would be better off or hurting yourself in some way Answer Date of Assessment Author Not at all 06/01/2025 11:11 AM EDT Lucian Amado MA * Patient Health Questionnaire-9 Score Answer Date of Assessment Author 6 06/01/2025 11:11 AM EDT Lucian Amado MA * Over the last 2 weeks, how often have you been bothered by any of the following problems? Question Answer Date of Assessment Author Feeling nervous, anxious, or on edge 3 05/08 11:11 AM EDT Diamond Amado MA Not being able to stop or co ntrol worrying 3 06/01/2025 11:11 AM EDT Diamond Amado MA Worrying too much about diff erent things 2 06/01/2025 11:11 AM EDT Diamond Amado MA Being so restless that it is hard to sit still 3 06/01/2025 11:11 AM EDT Diamond Amado MA Becoming easily annoyed or irritable 2 05/08 11:11 AM SANDYT Diamond Amado MA Feeling afraid as if somethi ng awful might happen 0 06/01/2025 11:11 AM SANDYT Diamond Amado MA documented as of this encounter Miscellaneous Notes * Telephone Encounter - Lizeth Brandon - 06/01/2025 10:09 AM EDT Emma Bell was seen by insurance enrollment department and can have a new patient appointment scheduled. Diabetes without any meds, Back issues, depression and anxiety conditions. documented in this encounter Plan of Treatment Upcoming Encounters Date Type Department Care Team (Late st Contact Info) Description 08/10/2025 9:45 AM EST Procedure Visit [facility] [address] [place] [address] Kenyatta Morin MD [address] [place], [place] [phone] documented as of this encounter Visit Diagnoses Not on filedocumented in this encounter Additional Health Concerns Assessment Noted Time PHQ-9 Depression Total Score: 6 06/01/20 25 11:11 AM EDT documented as of this encounter Care Teams Building Construction Ironworker Relationship Specialty Start Date End Date Kenyatta Morin MD [address] [place] [address] PCP - General Internal Medicine 06/01/25 documented as of this encounter
--- OUTSIDE RECORDS SUMMARY | 2025-06-04 12:28 | XMS_ITS | Encounter Summary ---
Author Organization [employer] Address [address] [place] [address] Care Team Providers Care Buttermaker Continuous Churn Name Role Phone Kenyatta Morin MD Primary Care Provide r Encounter Details Date Type Department Care Team (Latest Contact Info) Description 06/01/2025 Travel Social History Tobacco Use Types Packs/Day Years [...] 11:11 AM Lucian Booth MA * Trouble falling or staying asleep, [...] 06/01/2025 11:11 AM Lucian Booth MA * Thoughts that you would be [...] annoyed or irritable 2 05/08 11:11 AM EDT Diamond Amado MA Feeling afraid as if somethi ng awful might happen 0 06/01/2025 11:11 AM EDT Diamond Amado MA documented as of this encounter Plan of Treatment Upcoming Encounters Date Type Department Care Team (Late st Contact Info) Description 08/10/2025 9:45 AM EST Procedure Visit [facility] MEDICINE [address] [place], [place] [phone] Kenyatta Morin MD [address] [place] [address] documented as of this encounter Visit Diagnoses Not on filedocumented in this encounter Additional Health Concerns Assessment Noted Time PHQ-9 Depression Total Score: 06/01/20 11:11 AM EDT documented as of this encounter Care Teams Buttermaker Continuous Churn Relationship Specialty Start Date End Date Kenyatta Morin MD [address] [place], [place] [phone] PCP - General Internal Medicine 06/01/25 documented as of this encounter
--- OUTSIDE RECORDS SUMMARY | 2025-06-04 12:28 | XMS_ITS | Clinical Summary ---
Author Organization [facility] Address [address] [place] [address] Care Team Providers Care Mangle Catcher Name Role Phone Carlos Alberto Sarkar MD [...] and pilo PVD (peripheral vascular dis ease) ([facility] V24) DX:PVD (peripheral vascular disease) ([facility]); COMMENT: dr whipple DM (diabetes mellitus), type 2 with peripheral vascular complications ([facility]/HCC V24, [facility] V28) DX:DM (diabetes mellitus), type 2 with peripheral vascular complications ([facility]) COPD (chronic obstructive pu lmonary disease) ([facility] V24, [facility] V28) DX:COPD (chronic o bstructive pulmonary disease) ([facility]) Family History Medical History Relation Name Comments [...] 08/25/2021 08/25/2018 Colorectal Cancer Screening: Colonoscopy 08/08/2022 Hepatitis C Screening 08/08/2022 Social Influencers of Health Screening 08/08/2022 Diabetes: Annual Urine Albumin-Creatinine Ratio (uACR) 08/21/2022 02/09/2019 Diabetes: Blood Sugar Contro l Test (HGBA1C) 08/21/2022 02/09/2019 Hypertension/CHF/CAD Annual BMP Blood Test 08/21/2022 02/09/2019 Cholesterol Screening (Lipid Panel) 02/10/2024 02/09/2019, 02/09/2019 RSV Immunization Adult Patients (1 - Risk 60-74 years 1-dose series) 2024 Depression Screening 09/06/2024 COVID-19 Vaccine (1 - 2023-2 5 season) 2025 Influenza Vaccine (#1) 2025 6, 06/05/2015 DTaP,Tdap,and Td Vaccines (2 - Td [...] RESULTING AGENCY - 08/29/2018 5:10 PM EST [id number] THINPREP PAP, IMAGED: NEGATIVE FOR SQUAMOUS INTRAEPITHELIAL [...] Recently Relevant to Health Maintenance Care Teams Mangle Catcher Relationship Specialty Start Date End Date Carlos Alberto Sarkar MD PCP - General Internal Medicine 01/03/18
[2025-06-04 13:17] LABS: MANUAL DIFF FLAG NO
[2025-06-04 13:30] LABS: Hematocrit 47.1 % (37.0-47.0); Hemoglobin 15.4 g/dl (12.0-16.0); Imm Gran Abs Auto 0.02 X10*3/uL (0.00-0.03); Imm Gran Pct Auto 0.3 % (0.0-0.4); Lymphocytes Absolute Auto 1.1 X10*3/uL (1.2-4.9); Mean Corpuscular HGB Conc 32.7 g/dl (31.0-35.0); Mean Corpuscular Hemoglobin 29.9 pg (27.0-33.0); Mean Corpuscular Volume 91.5 fL (80.0-98.0); NRBC Abs Auto 0.000 X10*3/uL (0.0-0.012); NRBC Pct Auto 0.0 /100WBC (0.0-0.2); Platelet Count 281 X10*3/uL (160-400); Red Blood Count 5.15 X10*6/uL (4.20-5.50); White Blood Count 7.2 X10*3/uL (4.8-10.8)
[2025-06-04 14:16] LABS: Alanine Aminotransferase 18 U/L (0-31); Albumin Level 4.1 g/dL (3.5-5.0); Alkaline Phosphatase 87 U/L (39-117); Anion Gap 11 (12-20); Aspartate Amino Transferase 24 U/L (5-31); Blood Urea Nitrogen 12 mg/dL (9-16); Calcium 9.0 mg/dL (8.4-10.2); Carbon Dioxide 23 mmol/L (22-29); Chloride 112 mmol/L (96-108); Cholesterol 192 mg/dL (<200); Estimated Glomerular Filt Rate > 60; HDL Cholesterol 45 mg/dL (>40); Potassium 3.9 mmol/L (3.3-5.1); Sodium 142 mmol/L (135-145); Total Protein 6.9 g/dL (6.5-8.0); Triglycerides 153 mg/dL (<150)
[2025-06-05 05:26] LABS: HIV Num 1 0.04 S/CO (0.00-0.99); ~HepC Num1 0.06 S/CO (0.00-0.79); ~Hepatitis C Antibody Nonreactive (Nonreactive)
== END 2025-06-04 10:56 | disposition home or self-care (01) ==
LOC: HO.HHCL 10:55
PROVIDERS: PCP Internal Medicine; Visit Provider Internal Medicine
DX: E11.51 Type 2 diabetes mellitus with diabetic peripheral angiopathy without gangrene (principal); Z11.4 Encounter for screening for human immunodeficiency virus [HIV]
CPT/HCPCS: 36415; 80053; 80061; 82306; 84443; 85025; 86803; 87389

== ENCOUNTER 2025-08-10 16:10 | Outpatient (REF) | payer MEDICAID, SELFPAY ==
--- OUTSIDE RECORDS SUMMARY | 2024-07-06 10:31 | XMS_ITS | Encounter Summary ---
Author Organization [facility] Address [address] [place] [address] Care Team Providers Care Director Medical Name Role Phone Carlos Alberto Sarkar MD Primary Care Provider Unavail able Encounter Details Date Type Department Care Team ([facility] st Contact Info) Description 07/06/2024 11:31 AM EDT Hospital Encounter TH HISTORIC ENCOUNTERS EASTERN CONVERSION ONLY Fran Betancur, [employer] [address] [place] [address] Social History Tobacco Use Types Packs/Day Years Used Date Smoking Tobacco: Every Day Cigarettes Smokeless Tobacco: Never Alcohol Use Standard Drinks/Week Comments No 0 (1 standard drink = 0.6 oz pur e alcohol) Comments No Sex and Gender Information Value Date Recorded Sex Assigned at Female 06/06/2025 3:54 PM EDT Legal Sex Female 6:19 PM EST Gender Identity Not on file Sexual Orientation Not on file documented as of this encounter Plan of Treatment Not on file documented as of this encounter Procedures Procedure Name Priority Date/Time Associated Diagnosis Comments CR HIP UNI 2-3 VIEWS LT Routine 07/06/2024 11:58 AM EDT documented in this encounter Results * CR HIP UNI 2-3 VIEWS LT (07/06/2024 11:58 AM EDT) Anatomical Region Laterality Modality Radiographic Vicki ging 07/06/2024 11:3 6 AM EDT Narrative 07/06/2024 11:58 AM EDT [facility] Diagnostic Imaging Department [address] [place] [id number] Patient: EMMA WATT /Age/Sex: 1965 - 59 - F Unit#: [id number] [facility] Mnemonic/Ordering Site: [address]/[facility] Ordering Physician: FRAN BETANCUR APRN CR Hip Uni 2-3 Views LT - 07/06/24 - 1153 Report Status:Signed HISTORY: The patient is a 59-year-old female with left hip pain, nontraumatic. FINDINGS: AP radiograph of the pelvis, along with coned-down AP and external rotation-abduction views of the left hip, are obtained. The study demonstrates no fracture, dislocation, arthritic change, osteolytic or osteoblastic lesion, or other bony abnormality. No soft tissue abnormality is seen. IMPRESSION: Normal examination. Code 00877 Dictating Physician: ASIM SCHUMACHER MD Electronically Signed by: ASIM SCHUMACHER MD Dic Date/Time: 07/06/241156 Sign date/Time: 07/06/24 115 Procedure Note Asim Schumacher MD - 07/08/2024 [facility] Diagnostic Imaging Department [address] [place] [address] Patient: EMMA WATT /Age/Sex: 1965 - 59 - F Unit#: [id number] Location/Status: [facility]/REG CLI Mnemonic/[facility] Ordering Physician: FRAN BETANCUR APRN CR Hip Uni 2-3 Views LT - 07/06/24 - 1153 Report Status:Signed HISTORY: The patient is a 59-year-old female with left hip pain,nontraumatic. FINDINGS: AP radiograph of the pelvis, along with coned-down AP andexternal rotation-abduction views of the left hip, are obtained. The studydemonstrates no fracture, dislocation, arthritic change, osteolytic or osteoblasticlesion, or other bony abnormality. No soft tissue abnormality is seen. IMPRESSION: Normal examination. Code 43604 Dictating Physician: ASIM SCHUMACHER MD Electronically Signed by: ASIM SCHUMACHER MD Dic Date/Time: 07/06/241156 Sign date/Time: 07/06/241157 us Fran Betancur [employer] IMG XR PROCEDURES Final Result documented in this encounter Visit Diagnoses Not on filedocumented in this encounter Care Teams Director Medical Relationship Specialty Start Date End Date Carlos Alberto Sarkar MD PCP - General Internal Medicine 01/03/18 06/19/25 documented as of this encounter
--- OUTSIDE RECORDS SUMMARY | 2025-08-10 09:45 | XMS_ITS | Encounter Summary ---
Author Organization [employer] Address [address] [facility] [address] [place] [address] Care Team Providers Care Director Of Marketing Communications Name Role Phone Kenyatta Morin MD Primary Care Provide r Encounter Details Date Type Department Care Team (Latest Contact Info) Description 08/10/2025 9:45 AM EST Procedure Visit [facility] [address] [place], [place] [id number] Kenyatta Morin MD [address] [place], [place] [id number] DM (diabetes mellitus), type 2 with peripheral vascular complications (HCC); Continuous leakage of urine; Chronic midline low back pain with bilateral sciatica; Cervical cancer screening Social History Tobacco Use Types Packs/Day Years [...] Sign Reading Time Taken Comments Blood Pressure 128/80 08/10/2025 9:54 AM EST Pulse 67 08/10/2025 9:54 AM EST Temperature 33.3 C (92 F) 08/10/2025 9:54 AM EST Respiratory Rate 14 08/10/2025 9:54 AM EST Oxygen Saturation 99% 08/10/2025 9:54 AM EST Inhaled Oxygen Concentration - - Weight 71.7 kg (158 lb) 08/10/2025 9:54 AM EST Height 167.6 cm (5' 6 ) 08/10/2025 9:54 AM EST Body Mass Index 25.5 08/10/2025 9:54 AM EST documented in this encounter Progress Notes * Kenyatta Parkinson MD - 08/10/2025 9:45 AM EST SUBJECTIVE: Emma Bell is a 60 y.o. year old adult who presents for Pap Patient denies pelvic pain, bleeding, vaginal discharge Patient denies breast pain, lumps, nipple retraction or discharge Patient reports gabapentin is helping with her fibromyalgia and back pain Social History Social History Narrative Not on file Problem List[1] Encounter for screening mammogram for malignant neoplasm of breast Chronic obstructive pulmonary disease, unspecified COPD type (CMS/HCC) (HCC) DM (diabetes mellitus), type 2 with peripheral vascular complications (HCC) Chronic midline low back pain with bilateral sciatica Fibromyalgia Family History[2] Review of Systems Constitutional: Negative. HENT: Negative. Respiratory: Negative. Cardiovascular: Negative. Genitourinary: Positive for enuresis. Negative for dyspareunia, menstrual problem, pelvic pain and vaginal discharge. Musculoskeletal: Positive for arthralgias, back pain and myalgias. OBJECTIVE: Vitals: 08/10/25 0954 BP: 128/80 BP Location: Left arm Patient Position: Sitting BP Cuff Size: Adult Pulse: 67 Resp: 14 Temp: 92 ??F (33.3 ??C) TempSrc: Temporal SpO2: 99% Weight: 158 lb (71.7 kg) Height: 5' 6 (1.676 m) Physical Exam Exam conducted with a dye jig operator present. Constitutional: Appearance: Normal appearance. Cardiovascular: Rate and Rhythm: Normal rate and regular rhythm. Pulmonary: Effort: Pulmonary effort is normal. Breath sounds: Normal breath sounds. Abdominal: General: Abdomen is flat. Palpations: Abdomen is soft. Genitourinary: Vagina: Normal. Cervix: Normal. Uterus: Normal. Neurological: Mental Status: Emma is alert. Follow Up: No follow-ups on file. Medications Ordered Prior to Encounter[3] Problem List Items Addressed This Visit DM (diabetes mellitus), type 2 with peripheral vascular complications (HCC) Diabetes is: controlled - Lab Results Component Value Date HGBA1C 6.4 (A) 08/10/2025 - Lab Results Component Value Date CREATININE 0.74 06/04/2025 -Changes: none - Diabetic eye exam:pending - Diabetic foot exam:pending - Continue lifestyle modifications - Continue current medications - Follow up: 3 months Relevant Orders POCT Hgb A1c (Completed) POCT Glucose (Completed) Continuous leakage of urine Incontinence pads will be prescribe today Chronic midline low back pain with bilateral sciatica C/w gabapentin 300mg at bed time Cervical cancer screening Relevant Orders Pap Smear [1] Patient Active Problem List Diagnosis Encounter for screening mammogram for malignant neoplasm of breast Chronic obstructive pulmonary disease, unspecified COPD type (CMS/HCC) (HCC) DM (diabetes mellitus), type 2 with peripheral vascular complications (HCC) Chronic midline low back pain with bilateral sciatica Fibromyalgia Continuous leakage of urine Cervical cancer screening [2] No family history on file. [3] Current Outpatient Medications on File Prior to Visit Medication Sig Dispense Refill Alcohol Swabs 70 % pads Use to test blood sugar 1 times daily 100 each 0 Blood Glucose Monitoring Suppl (FreeStyle [place] Lite) w/Device kit Use to test blood sugar 1 times daily 1 kit 0 FREESTYLE LITE test strip Use to test blood sugar 1 times daily 100 each 12 gabapentin (Neurontin) 100 MG capsule Take 1 capsule (100 mg) by mouth 2 times daily. 60 capsule 2 Lancets misc Use to test blood sugar 1 times daily 100 each 0 metFORMIN (Glucophage) 500 MG tablet Take 1 tablet (500 mg) by mouth with breakfast and with evening meal. 60 tablet 11 Ventolin HFA 108 (90 Base) MCG/ACT inhaler INHALE 2 PUFFS BY MOUTH EVERY 4 HOURS NEEDED FOR WHEEZING 18 g 2 [DISCONTINUED] albuterol 108 (90 Base) MCG/ACT inhaler Inhale 2 puffs every 4 (four) hours if needed for wheezing. 18 g 2 No current facility-administered medications on file prior to visit. documented in this encounter Miscellaneous Notes * Assessment & Plan Note - Kenyatta Parkinson MD - 08/10/2025 12:54 PM EST Associated Problem(s): Chronic midline low back pain with bilateral sciatica C/w gabapentin 300mg at bed time * Assessment & Plan Note - Kenyatta Parkinson MD - 08/10/2025 12:53 PM EST Associated Problem(s): Continuous leakage of urine Incontinence pads will be prescribe today * Assessment & Plan Note - Kenyatta Parkinson MD - 08/10/2025 12:53 PM EST Associated Problem(s): DM (diabetes mellitus), type 2 with peripheral vascular complications (HCC) Diabetes is: controlled - Lab Results Component Value Date HGBA1C 6.4 (A) 08/10/2025 - Lab Results Component Value Date CREATININE 0.74 06/04/2025 -Changes: none - Diabetic eye exam:pending - Diabetic foot exam:pending - Continue lifestyle modifications - Continue current medications - Follow up: 3 months documented in this encounter Plan of Treatment Scheduled Orders Name Type Priority Associated Diagnoses Orde r Schedule Pap Smear Pathology and Cytology Routine Cervical cancer screening Ordered: 08/10/2025 documented as of this encounter Goals Goal Patient Goal Type Associated Problems Recent Progress Patient-Stated? Author Help patients manage their type 2 diabetes Care Plan Help patients manage their type 2 diabetes No Myla yesNydia [place] Patient has chronic kidney disease Care Plan Patient has chronic kidney disease No Myla yesNydia [place] Patient has chronic kidney disease Care Plan Patient has chronic kidney disease No Myla yesNydia [place] documented as of this encounter Procedures Procedure Name Priority Date/Time Associated Diagnosis Comments POCT GLYCATED HEMOGLOBIN, TOTAL Routine 08/10/2025 11:34 AM EST DM (diabetes mellitus), type 2 with peripheral vascular complications (HCC) POCT GLUCOSE Routine 08/10/2025 11:34 AM EST DM (diabetes mellitus), type 2 with peripheral vascular complications (HCC) documented in this encounter Results * POCT Glucose (08/10/2025 11:34 AM EST) Glucose Blood, POC 138 60 - 200 mg/dL QC Media Lot # [id number] Lot# Expiration Date 7,726 Blood Capillary blood specimen / Unknown 08/10/2025 11:34 AM EST us Kenyatta Parkinson MD POINT OF CARE TEST EN TER/EDIT ORDERABLES Final Result * (ABNORMAL) POCT Hgb A1c (08/10/2025 11:34 AM EST) Hemoglobin A1C 6.4(A) 4.0 - 5.7 % QC Media Lot # [id number] Lot# Expiration Date 52,327 Blood 08/10/2025 11:3 4 AM EST us Kenyatta Parkinson MD POINT OF CARE TEST EN TER/EDIT ORDERABLES Final Result documented in this encounter Visit Diagnoses Diagnosis DM (diabetes mellitus), type 2 with peripheral vascular complications (HCC) Type II or unspecified type diabetes mellitus with peripheral circulatory disorders, not stated as uncontrolled Continuous leakage of urine Continuous leakage Chronic midline low back pain with bilateral sciatica Cervical cancer screening Screening for malignant neoplasm of the cervix documented in this encounter Additional Health Concerns Active Problems Noted Date Diagnosed Date Help patients manage their type 2 diabetes 08/09 Patient has chronic kidney disease 08/09/2025 Patient has chronic kidney disease 08/09/2025 Assessment Noted Time PHQ-9 Depression Total Score: 6 06/01/20 25 11:11 AM EDT documented as of this encounter Care Teams Director Of Marketing Communications Relationship Specialty Start Date End Date Kenyatta Morin MD [address] [place] [id number] PCP - General Internal Medicine 06/01/25 documented as of this encounter
--- OUTSIDE RECORDS SUMMARY | 2025-08-10 19:49 | XMS_ITS | Clinical Summary ---
Author Organization [employer] Address [address] [facility] [address] [place] [address] Care Team Providers Care Material Cutter Name Role Phone Kenyatta Morin MD Primary Care Provide r Allergies No known active allergies Medications gabapentin (Neurontin) 100 MG capsuleIndication s:Chronic midline low back pain with bilateral sciatica Take 1 capsule (100 mg) by mouth 2 times daily. 60 capsule 2 06/01/20 25 026 Active metFORMIN (Glucophage) 500 MG tabletIndications :DM (diabetes mellitus), type 2 with peripheral vascular complications (HCC) Take 1 tablet (500 mg) by mouth with breakfast and with evening meal. 60 tablet 11 06/01/20 25 026 Active FREESTYLE LITE test stripIndications: DM (diabetes mellitus), type 2 with peripheral vascular complications (HCC) Use to test blood sugar 1 times daily 100 each 12 5 8:50 AM EST 06/01/20 25 026 Active Lancets miscIndications:D M (diabetes mellitus), type 2 with peripheral vascular complications (HCC) Use to test blood sugar 1 times daily 100 each 06/01/20 25 Active Alcohol Swabs 70 % padsIndications:D M (diabetes mellitus), type 2 with peripheral vascular complications (HCC) Use to test blood sugar 1 times daily 100 each 06/01/20 25 Active Blood Glucose Monitoring Suppl (FreeStyle [place] Lite) w/Device kitIndications:DM (diabetes mellitus), type 2 with peripheral vascular complications (HCC) Use to test blood sugar 1 times daily 1 kit 06/01/20 25 Active Ventolin HFA 108 (90 Base) MCG/ACT inhalerIndication s:Chronic obstructive pulmonary disease, unspecified COPD type (CMS/HCC) ([facility]) INHALE 2 PUFFS BY MOUTH EVERY 4 HOURS NEEDED FOR WHEEZING 18 g 2 08/06/20 25 Active albuterol 108 (90 Base) MCG/ACT inhalerIndication s:Chronic obstructive pulmonary disease, unspecified COPD type (CMS/HCC) ([facility]) Inhale 2 puffs every 4 (four) hours if needed for wheezing. 18 g 2 5 8:50 AM EST 06/01/20 025 Discontinued Active Problems Problem Noted Date Diagnosed Date Continuous leakage of urine 08/10/2025 Assessment & Plan (08/10/2025 12:53 PM EST): Incontinence pads will be prescribe today Cervical cancer screening 08/10/2025 Encounter for screening mamm ogram for malignant neoplasm of breast 06/01/2025 Chronic obstructive pulmonar y disease, unspecified COPD type (CMS/HCC) 06/01/2025 Assessment & Plan (06/01/2025 4:24 PM EDT): Stable I prescribed albuterol PRN DM (diabetes mellitus), type 2 with peripheral vascular complications 06/01/2025 Assessment & Plan (08/10/2025 12:53 PM EST): Diabetes is: controlled - Lab Results Component Value Date HGBA1C 6.4 (A) 08/10/2025 - Lab Results Component Value Date CREATININE 0.74 06/04/2025 -Changes: none - Diabetic eye exam:pending - Diabetic foot exam:pending - Continue lifestyle modifications - Continue current medications - Follow up: 3 months Assessment & Plan (06/01/2025 4:23 PM EDT): A1c 6.7 -Changes: I start her again on metformn 500mg BID and prescribed diabetes supplies - Diabetic eye exam:pending - Diabetic foot exam:pending - Continue lifestyle modifications - Continue current medications - Follow up: 3 months Chronic midline low back pain with bilateral sci atica 06/01/2025 Assessment & Plan (08/10/2025 12:54 PM EST): C/w gabapentin 300mg at bed time Assessment & Plan (06/01/2025 4:24 PM EDT): I will start her on gabapentin low dose 100mg morning and afternoon she may continue with gabapentin 300mg at bed time Fibromyalgia 06/01/2025 Encounters Date Type Department Care Team Description 08/10/2025 9:45 AM EST Procedure Visit [facility] [address] [place] [phone] Kenyatta Morin MD DM (diabetes mellitus), type 2 with peripheral vascular complications (HCC); Continuous leakage of urine; Chronic midline low back pain with bilateral sciatica; Cervical cancer screening 08/10/2025 Travel 08/09/2025 Telephone [facility] [address] [place] [address] Kenyatta Morin MD chart prep 08/02/2025 Refill [facility] [address] [place] [address] Kenyatta Morin MD Chronic obstructive pulmonary disease, unspecified COPD type (CMS/HCC) (HCC) 06/01/2025 10:15 AM EDT Office Visit [facility] [address] [place] [address] Kenyatta Morin MD Screening for colon cancer (Primary Dx); Dietary counseling; Exercise counseling; Encounter for screening mammogram for malignant neoplasm of breast; Chronic obstructive pulmonary disease, unspecified COPD type (CMS/HCC); DM (diabetes mellitus), type 2 with peripheral vascular complications (CMS/HCC); Chronic midline low back pain with bilateral sciatica; Fibromyalgia; Encounter for immunization 06/01/2025 Travel 06/01/2025 Telephone [facility] [address] [place] [address] Roslyn Aranda MD New Patient appt from Last 3 Months Immunizations Immunization Administration [...] is your housing situation today? I have orlandodolores espinal 06/01/[address] you [...] Mass Index 25.5 08/10/2025 9:54 AM EST Plan of Treatment Health Maintenance Due Date Last Done Comments CT Colonography 1964 Colonoscopy 1964 FIT 1964 Sigmoidoscopy 1964 Disability Screening 1964 Diabetes: Foot Exam 1974 Eye Exam 1974 Diabetes: Urine Protein Screening 1983 Pap Smear 1985 Cervical Cancer Screening 1994 HPV/Cotest 1994 RSV Patients and Patients Aged 60 years or older (1 - Risk 50-74 years 1-dose series) 2014 Zoster Vaccines (1 of 2) 2014 Hepatitis B Vaccines (3 of 3 - 19+ 3-dose series) 09/10/2019 04/11/2019, 03/10/2019 COVID-19 Vaccine (1 - season) 2025 Influenza Vaccine (#1) 2025 6, 08/03/2016, 06/05/2015, Additional history exists Diabetes: Hemoglobin A1C 02/08/2026 08/10/2025, 06/0 02/2019 Alcohol/Substance Use Screening 06/01/2026 06/01/2025 Depression Screening 06/01/2026 06/01/2025, 06/01/20 25 SDOH Screening 06/01/2026 06/01/2025 Lipid Panel 06/04/2026 06/04/2025 FOBT 06/19/2026 06/19/2025 Mammogram 06/26/2026 06/26/2025, 06/26/2025 Tobacco Screening 08/10/2026 08/10/2025 DTaP/Tdap/Td Vaccines (2 - Td or Tdap) 05/03/2028 05/03/2018 Colorectal Cancer Screening 06/19/2028 FIT DNA/Cologuard 06/19/2028 06/19/2025 Pneumococcal Vaccine: 50+ Years Completed 06/01/2025, 09/29/2017 HIV Screening Completed 06/04/2025, 02/09/2019 Hepatitis C Screening Completed 06/04/2025 HIB Vaccines Aged Out No longer eligi [...] on patient's age to complete this topic Goals Goal Patient Goal Type Associated Problems Recent Progress Patient-Stated? Author Help patients manage their type 2 diabetes Care Plan Help patients manage their type 2 diabetes No Ray-Lizeth yes, HEMALATHA Stafford Patient has chronic kidney disease Care Plan Patient has chronic kidney disease No Ray-Lizeth yes, HEMALATHA Stafford Patient has chronic kidney disease Care Plan Patient has chronic kidney disease No Ray-Lizeth yes, HEMALATHA Stafford Procedures Procedure Name Priority Date/Time Associated Diagnosis Comments POCT GLUCOSE Routine 08/10/2025 11:34 AM EST DM (diabetes mellitus), type 2 with peripheral vascular complications (HCC) POCT GLYCATED HEMOGLOBIN, TOTAL Routine 08/10/2025 11:34 AM EST DM (diabetes mellitus), type 2 with peripheral vascular complications (HCC) LAB COLOGUARD COLON CANCER SCREEN Routine 06/19/2025 7:35 AM EDT Screening for colon cancer TSH W/REFLEX TO FT4 Routine 06/04/2025 1 1:20 AM EDT DM (diabetes mellitus), type 2 with peripheral vascular complications (CMS/HCC) VITAMIN D,25-OH,TOTAL,IA Routine 06/04/2025 11:20 AM EDT DM (diabetes mellitus), type 2 with peripheral vascular complications (CMS/HCC) LIPID PANEL, STANDARD Routine 06/04/2025 11:20 AM EDT DM (diabetes mellitus), type 2 with peripheral vascular complications (CMS/HCC) HEPATITIS C AB W/REFL TO HCV RNA, QN, PCR Routine 06/04/2025 11:20 AM EDT DM (diabetes mellitus), type 2 with peripheral vascular complications (CMS/HCC) HIV 1/2 ANTIGEN/ANTIBODY, FOURTH GENERATION W/RFL Routine 06/04/2025 11:20 AM EDT DM (diabetes mellitus), type 2 with peripheral vascular complications (CMS/HCC) COMPREHENSIVE METABOLIC PANEL Routine 06/04/2025 11:20 AM EDT DM (diabetes mellitus), type 2 with peripheral vascular complications (CMS/HCC) CBC WITH AUTO DIFFERENTIAL Routine 06/04/2025 11:20 AM EDT DM (diabetes mellitus), type 2 with peripheral vascular complications (CMS/HCC) from Last 3 Months Results * (ABNORMAL) POCT Hgb A1c (08/10/2025 11:34 AM EST) Hemoglobin A1C 6.4(A) 4.0 - 5.7 % QC Media Lot # [id number] Lot# Expiration Date 52,327 Blood 08/10/2025 11:3 4 AM EST Kenyatta Parkinson MD POINT OF CARE TEST EN TER/EDIT ORDERABLES Final Result * POCT Glucose (08/10/2025 11:34 AM EST) Glucose Blood, POC 138 60 - 200 mg/dL QC Media Lot # [id number] Lot# Expiration Date 7,726 Blood Capillary blood specimen / Unknown 08/10/2025 11:34 AM EST Kenyatta Parkinson MD POINT OF CARE TEST EN TER/EDIT ORDERABLES Final Result * Cologuard?? colon cancer screening (06/19/2025 7:35 AM EDT) Cologuard Result Negative Negative 06/24/20 4:49 PM EDT [employer] (CLIA #:[id number]) Comment: The Cologuard (TM) test was performed on this specimen. NEGATIVE TEST RESULT. A negative Cologuard result indicates a low likelihood that a colorectal cancer (CRC) or advanced adenoma (adenomatous polyps with more advanced pre-malignant features) is present. The chance that a person with a negative Cologuard test has a colorectal cancer is less than 1 in 1500 (negative predictive value >99.9%) or has an advanced adenoma is less than 5.3% (negative predictive value 94.7%). These data are based on a prospective cross-sectional study of 10,000 individuals at average risk for colorectal cancer who were screened with both Cologuard and colonoscopy. (Elder Cisneros et al, N Engl J Med 2014;370(14):1286- 1297) The normal value (reference range) for this assay is negative. COLOGUARD RE-SCREENING RECOMMENDATION: Periodic colorectal cancer screening is an important part of preventive healthcare for asymptomatic individuals at average risk for colorectal cancer. Following a negative Cologuard result, the English Cancer Society and U.S. Multi-Society Task Force screening guidelines recommend a Cologuard re-screening interval of 3 years. References: English Cancer Society Guideline for Colorectal Cancer Screening: https://www.cancer.org/cancer/bzdhb-yhrwdw-xbllir/igwmwswty-dhvxxayoh-lfvwmlh/ac s-rec ommendations.html.; Sharif DK, Miguel CR, Prasanna HurdK, Colorectal Cancer Screening: Recommendations for Physicians and Patients from the U.S. Multi-Society Task Force on Colorectal Cancer Screening , Am J Gastroenterology 2017; 112:3882-1251. TEST DESCRIPTION: Composite algorithmic analysis of stool DNA-biomarkers with hemoglobin immunoassay. Quantitative values of individual biomarkers are not reportable and are not associated with individual biomarker result reference ranges. Cologuard is intended for colorectal cancer screening of adults of either sex, 45 years or older, who are at average-risk for colorectal cancer (CRC). Cologuard has been approved for use by the U.S. FDA. The performance of Cologuard was established in a cross sectional study of average-risk adults aged 50-84. Cologuard performance in patients ages 45 to 49 years was estimated by sub-group analysis of near-age groups. Colonoscopies performed for a positive result may find as the most clinically significant lesion: colorectal cancer [4.0%], advanced adenoma (including sessile serrated polyps greater than or equal to 1cm diameter) [20%] or non- advanced adenoma [31%]; or no colorectal neoplasia [45%]. These estimates are derived from a prospective cross-sectional screening study of 10,000 individuals at average risk for colorectal cancer who were screened with both Cologuard and colonoscopy. (Elder Vaughn al, N Engl J Med 2014;370(14):6279-9702.) Cologuard may produce a false negative or false positive result (no colorectal cancer or precancerous polyp present at colonoscopy follow up). A negative Cologuard test result does not guarantee the absence of CRC or advanced adenoma (pre-cancer). The current Cologuard screening interval is every 3 years. (English Cancer Society and U.S. Multi-Society Task Force). Cologuard performance data in a 10,000 patient pivotal study using colonoscopy as the reference method can be accessed at the following location: www.eflow/results. Additional description of the Cologuard test process, warnings and precautions can be found at [email or web address].[email or web address]. Stool specimen (specimen) 06/19/2025 7:35 AM EDT 06/20/2025 10:42 AM EDT us Kenyatta Parkinson MD LAB MOLECULAR DIAGNOS TICS ORDERABLES Final Result [employer] (CLIA #:[id number]) [address] [place] [address], * Vitamin D, 25-Hydroxy, Total, Immunoassay (06/04/2025 11:20 AM EDT) Vitamin D 25-OH Total 35.3 >30 ng/mL [facility] Comment: Health Based Reference Values*< 20 ng/mL Orcahtyqk87-60 ng/mL Insufficient> 30 ng/mL Sufficient*Mariella DAVIDSON. N Engl J Med. 2007;357:266-280There is no well-established upper level of normal vitamin Dlevels. Some laboratories use 50 ng/mL as an upper limit ofnormal. However, toxicity is patient-dependent and may occurat any level. Careful correlation with the patient'spresentation is necessary and, if there is concern forvitamin D toxicity, treatment should be consideredirrespective of the serum level.Care must be taken in interpreting Vitamin D results fromdifferent laboratories and methodologies. Published datademonstrated that results from patients undergoinghemodialysis may show a negative bias when tested withvarious automated 25-OH vitamin D assays when compared toLC-MS/MS.When testing samples from patients whose predominant form ofVitamin D is Vitamin D2, such as patients receiving VitaminD2 supplementation, results that are subtherapeutic shouldbe confirmed with another method such as LC-MS/MS. Blood Venous blood specimen / Unknown 06/04/2025 11:20 AM EDT 06/04/2025 1:19 PM EDT us Kenyatta Parkinson MD LAB BLOOD ORDERABLES Final Result Performing Organization Address City/[facility]/ZIP Co de Phone Number [facility] [address] [place] [phone] * TSH with Reflex to Free T4 (06/04/2025 11:20 AM EDT) TSH reflex Free T4 1.21 0.32 - 4.0 uIU/mL [facility] Blood Venous blood specimen / Unknown 06/04/2025 11:20 AM EDT 06/04/2025 1:19 PM EDT Kenyatta Parkinson MD LAB BLOOD ORDERABLES Final Result [facility] [address] [place] [phone] * (ABNORMAL) CBC auto differential (06/04/2025 11:20 AM EDT) White Blood Count 7.2 4.8 - 10.8 X10*3/uL [facility] Red Blood Count 5.15 4.20 - 5.50 X10*6/uL [facility] Hemoglobin 15.4 12.0 - 16.0 g/dl [facility] Hematocrit 47.1(H) 37.0 - 47.0 % [facility] Mean Corpuscular Volume 91.5 80.0 - 98.0 fL [facility] Mean Corpuscular Hemoglobin 29.9 27.0 - 33.0 pg [facility] Mean Corpuscular HGB Conc 32.7 31.0 - 35.0 g/dl [facility] Red Cell Distribution Width 12.9 11.0 - 16.0 % [facility] Platelet Count 281 160 - 400 X10*3/uL [facility] Mean Platelet Volume 11.9 9.4 - 12.3 fL [facility] Neutrophils Percent Auto 75.6(H) 45 - 73 % [facility] Imm Gran Pct Auto 0.3 0.0 - 0.4 % [facility] Lymphocytes Percent Auto 14.6(L) 20 - 40 % [facility] Monocytes Percent Auto 8.1 2 - 11 % [facility] Eosinophils Percent Auto 1.0 0 - 4 % [facility] Basophils Percent Auto 0.4 0 - 2 % [facility] NRBC Pct Auto 0.0 0.0 - 0.2 /100WBC [facility] Neutrophils Absolute Auto 5.4 2.0 - 8.3 x10*3/uL [facility] Imm Gran Abs Auto 0.02 0.00 - 0.03 X10*3/uL [facility] Lymphocytes Absolute Auto 1.1(L) 1.2 - 4.9 X10*3/uL [facility] Monocytes Absolute Auto 0.6 0.1 - 1.2 X10*3/uL [facility] Eosinophils Absolute Auto 0.1 0.0 - 0.4 X10*3/uL [facility] Basophils Absolute Auto 0.0 0.0 - 0.2 X10*3/uL [facility] NRBC Abs Auto 0.000 0.0 - 0.012 X10*3/uL [facility] Blood Venous blood specimen / Unknown 06/04/2025 11:20 AM EDT 06/04/2025 1:16 PM EDT Kenyatta Parkinson MD LAB BLOOD ORDERABLES Final Result Performing Organization Address [facility] Co de Phone Number [facility] [address] [place] [phone] * Hepatitis C Antibody with Reflex to HCV, RNA, Quantitative, Real-Time PCR (06/04/2025 11:20 AM EDT) Pathologist [facility] Hepatitis C Antibody Nonreactive Nonreactive [facility] Comment:Antibodies to HCV no t detected; does not exclude early acuteHCV infection. Blood Venous blood specimen / Unknown 06/04/2025 11:20 AM EDT 06/04/2025 1:19 PM EDT us Kenyatta Parkinson MD LAB BLOOD ORDERABLES Final Result Performing Organization Address [facility] Co de Phone Number [facility] [address] [place] [phone] * HIV-1/2 Antigen and Antibodies, Fourth Generation, with Reflexes (06/04/2025 11:20 AM EDT) HIV AB/AG Nonreactive Nonreactive [facility] Comment:HIV-1 p24 Ag and/or HIV-1/HIV-2 Ab not detected.A test result that is nonreactive does not exclude thepossibility of exposure to or infection with HIV-1 and/orHIV-2. Nonreactive results in this assay for individualswith prior exposure to HIV-1 and/or HIV-2 may be due toantigen and antibody levels that are below the limit ofdetection of this assay.The [employer] HIV Ag/Ab Combo assay result andsupplemental assay results should be interpreted inconjunction with the patient's clinical presentation,history and other laboratory results. If the results areinconsistent with clinical evidence, additional testing issuggested to confirm the result. Blood Venous blood specimen / Unknown 06/04/2025 11:20 AM EDT 06/04/2025 1:19 PM EDT us Kenyatta Parkinson MD LAB BLOOD ORDERABLES Final Result [facility] [address] [place] [phone] * (ABNORMAL) Lipid Panel, Standard (06/04/2025 11:20 AM EDT) Triglycerides 153(H) <150 mg/dL [facility] Comment:Desirable Triglyceri de: less than 150 mg/dLBorderline High Triglyceride 150-199 mg/dLHigh Triglyceride: 200-499 mg/dLVery High Triglyceride: greater than or equal to 5OO mg/dL Cholesterol 192 <200 mg/dL [facility] Comment:Desirable Cholestero l: less than 200 mg/dLBorderline High Cholesterol: 200-239 mg/dLHigh Cholesterol: greater than 239 mg/dL LDL Cholesterol Calculated 117(H) <100 mg/dL [facility] Comment:Desirable LDL: less than 100 mg/dLNear Optimal/Above Optimal LDL: 110- 129 mg/dLBorderline High LDL: 130-159 mg/dLHigh LDL: 160-189 mg/dLVery High LDL: greater than or equal to 190 mg/dL HDL Cholesterol 45 >40 mg/dL [facility] Comment:Desirable HDL: great er than 40 mg/dL Note: This HDL assay may give artificially low results in patients with liver disease. Blood Venous blood specimen / Unknown 06/04/2025 11:20 AM EDT 06/04/2025 1:19 PM EDT us Kenyatta Parkinson MD LAB BLOOD ORDERABLES Final Result [facility] [address] [place] [phone] * (ABNORMAL) Comprehensive Metabolic Panel (06/04/2025 11:20 AM EDT) Sodium 142 135 - 145 mmol/L [facility] Potassium 3.9 3.3 - 5.1 mmol/L [facility] Chloride 112(H) 96 - 108 mmol/L [facility] Carbon Dioxide 23 22 - 29 mmol/L [facility] Anion Gap 11(L) 12 - 20 [facility] Urea Nitrogen (BUN) 12 9 - 16 mg/dL [facility] Creatinine, Serum 0.74 0.5 - 1.4 mg/dL [facility] Estimated Glomerular Filt Rate >60 [facility] Comment:Chronic Kidney Disea se: Estimated GFR < 60 mL/min/1.19i7Cbaars Kidney Disease: Estimated GFR < 15 mL/min/1.73m2 Glucose 180(H) 60 - 115 mg/dL [facility] Calcium 9.0 8.4 - 10.2 mg/dL [facility] Bilirubin, Total 0.4 0.0 - 1.0 mg/dL [facility] Aspartate Amino Transferase 24 5 - 31 U/L [facility] Alanine Aminotransferase 18 0 - 31 U/L [facility] Total Protein 6.9 6.5 - 8.0 g/dL [facility] Albumin Level 4.1 3.5 - 5.0 g/dL [facility] Alkaline Phosphatase 87 39 - 117 U/L [facility] Blood Venous blood specimen / Unknown 06/04/2025 11:20 AM EDT 06/04/2025 1:19 PM EDT us Kenyatta Parkinson MD LAB BLOOD ORDERABLES Final Result [facility] [address] [place] [phone] from Last 3 Months Additional Health Concerns Active Problems Noted Date Diagnosed Date Help patients manage their type 2 diabetes 08/09 Patient has chronic kidney disease 08/09/2025 Patient has chronic kidney disease 08/09/2025 [facility] C[facility] Care Teams Material Cutter Relationship Specialty Start Date End Date Kenyatta Morin MD [address] [place] [phone] PCP - General Internal Medicine 06/01/25
--- OUTSIDE RECORDS SUMMARY | 2025-08-10 19:49 | XMS_ITS | Encounter Summary ---
Author Organization [employer] Address [address] [facility] [address] [place] [address] Care Team Providers Care Mushroom Growing Supervisor Name Role Phone Kenyatta Morin MD Primary Care Provide r Reason for Visit * Reason Comments Med Refill Encounter Details Date Type Department Care Team ([facility] st Contact Info) Description 08/02/2025 Refill [facility] [address] [place], [place] [phone] Kenyatta Morin MD [address] [place], [place] [phone] Chronic obstructive pulmonary disease, unspecified COPD type (CMS/HCC) (HCC) Social History Tobacco Use Types Packs/Day Years Used Date Smoking Tobacco: Every Day Cigarettes Smokeless Tobacco: Never Depression Answer Date Recorded Patient Health Questionnaire-9 Score 6 06/01/2025 Patient Health Questionnaire-9 Score 6 06/01/2025 Last PHQ-9: Questionnaire Data Not on file 0 06/01/2025 Housing Stability Answer Date Recorded What is your housing situation today? I have orlando espinla 06/01/[address] you li [...] AM EDT documented as of this encounter Plan of Treatment Not on file documented as of this encounter Visit Diagnoses Diagnosis Chronic obstructive pulmonary disease, unspecified COPD type (CMS/HCC) (HCC) documented in this encounter Additional Health Concerns Assessment Noted Time PHQ-9 Depression Total Score: 6 06/01/20 25 11:11 AM EDT documented as of this encounter Care Teams Mushroom Growing Supervisor Relationship Specialty Start Date End Date Kenyatta Morin MD [address] [place] [phone] PCP - General Internal Medicine 06/01/25 documented as of this encounter
--- OUTSIDE RECORDS SUMMARY | 2025-08-10 19:49 | XMS_ITS | Encounter Summary ---
Author Organization [employer] Address [address] [facility] [address] [place] [address] Care Team Providers Care Concrete Pipe Making Machine Operator Name Role Phone Kenyatta Morin MD Primary Care Provide r Encounter Details Date Type Department Care Team (Latest Contact Info) Description 08/10/2025 Travel Social History Tobacco Use Types Packs/Day [...] on file documented as of this encounter Goals Goal Patient Goal Type Associated Problems Recent Progress Patient-Stated? Author Help patients manage their type 2 diabetes Care Plan Help patients manage their type 2 diabetes No Nydia Santamaria [place] Patient has chronic kidney disease Care Plan Patient has chronic kidney disease No Nydia Santamaria [place] Patient has chronic kidney disease Care Plan Patient has chronic kidney disease No Nydia Santamaria [place] documented as of this encounter Visit Diagnoses Not on filedocumented in this encounter Additional Health Concerns Active Problems Noted Date Diagnosed Date Help patients manage their type 2 diabetes 08/09 Patient has chronic kidney disease 08/09/2025 Patient has chronic kidney disease 08/09/2025 Assessment Noted Time PHQ-9 Depression Total Score: 6 06/01/20 25 11:11 AM EDT documented as of this encounter Care Teams Concrete Pipe Making Machine Operator Relationship Specialty Start Date End Date Kenyatta Morin MD [address] [place] [phone] PCP - General Internal Medicine 06/01/25 documented as of this encounter
--- OUTSIDE RECORDS SUMMARY | 2025-08-10 19:49 | XMS_ITS | Clinical Summary ---
Author Organization [facility] Address [address] [place] [address] Phone Care Team Providers Care Roll Changer Name Role Phone Kenyatta Morin MD Primary Care Provide r Encounters Date Type Department Care Team Description 06/26/2025 2:44 PM EDT - 06/26/2025 11:59 PM EDT Hospital Encounter [facility] at [address] [phone] Encounter for screening mammogram for malignant neoplasm of breast Discharge Disposition: Home or Self Care from Last 3 Months Surgical History Surgery Date Site/Laterality Comments TUBAL [...] and pilo PVD (peripheral vascular dis ease) ([facility] V24) DX:PVD (peripheral vascular disease) ([facility]); COMMENT: dr whipple DM (diabetes mellitus), type 2 with peripheral vascular complications ([facility] V24, [facility] V28) DX:DM (diabetes mellitus), type 2 with peripheral vascular complications (HCC) COPD (chronic obstructive pu lmonary disease) ([facility] V24, [facility] V28) DX:COPD (chronic o bstructive pulmonary disease) (HCC) Family History Medical History Relation Name Comments [...] Not Answered Alcohol Use Standard Drinks/Week Comments No 0 (1 standard drink = 0.6 oz pur e alcohol) Comments No Sex and Gender Information Value Date Recorded Sex Assigned at Female 06/06/2025 3:54 PM EDT Legal Sex Female 6:19 PM EST Gender Identity Not on file Sexual Orientation Not on file Obstetrics History Para Term AB IAB SAB Ectopic Multiple Livin g Live Births 3 Last Filed Vital Signs Vital Sign Reading Time Taken Comments Blood Pressure - - Pulse - - Temperature - - Respiratory Rate - - Oxygen Saturation - - Inhaled Oxygen Concentration - - Weight 70.8 kg (156 lb) 06/26/2025 2:59 PM EDT Height 167.6 cm (5' 6 ) 06/26/2025 2:59 PM EDT Body Mass Index 25.18 06/26/2025 2:59 PM EDT Plan of Treatment Health Maintenance Due Date Last Done Comments Diabetes: Annual Foot Exam 1974 Diabetes: Annual Retina Eye Exam 1974 RSV Immunization Adult Patients (1 - Risk 50-74 years 1-dose series) 2014 Zoster Vaccines (1 of 2) 2014 Hepatitis B Vaccines (3 of 3 - 19+ 3-dose series) 09/10/2019 04/11/2019, 03/10/2019 Diabetes: Annual GFR (Glomerular Filtration Rate) 02/10/2020 02/09/2019 Cervical Cancer Screening: P ap Smear 08/25/2021 08/25/2018 Hepatitis C Screening 08/08/2022 Social Influencers of Health Screening 08/08/2022 Diabetes: Annual Urine Albumin-Creatinine Ratio (uACR) 08/21/2022 02/09/2019 Diabetes: Blood Sugar Contro l Test (HGBA1C) 08/21/2022 02/09/2019 Hypertension/CHF/CAD Annual BMP Blood Test 08/21/2022 02/09/2019 Cholesterol Screening (Lipid Panel) 02/10/2024 02/09/2019, 02/09/2019 Depression Screening 09/06/2024 COVID-19 Vaccine (1 - 2024-2 6 season) 2025 Influenza Vaccine (#1) 2025 6, 06/05/2015 Breast Cancer Screening 06/26/2027 06/26/20, 05/26/2018 DTaP,Tdap,and Td Vaccines (2 - Td or Tdap) 05/03/2028 05/03/2018 Colorectal Cancer Screening: FIT-DNA (Cologuard) 06/19/2028 06/19/2025 HIV Screening Completed 02/09/2019 Pneumococcal Vaccine: 50+ [...] Procedure Name Priority Date/Time Associated Diagnosis Comments MG MAMMO DIGITAL SCREENING W ALEX BILAT Routine 06/26/2025 3:19 PM EDT Encounter for screening mammogram for malignant neoplasm of breast PAP SMEAR Routine 08/25/2018 from Last 3 Months or Most Recently Relevant to Health Maintenance Results * MG Mammo Digital Screening w Alex bilat (06/26/2025 3:19 PM EDT) Anatomical Region Laterality Modality Breast Bilateral Mammography 06/27/2025 11:0 5 AM EDT Impressions 06/27/2025 2:28 PM EDT No mammographic evidence of malignancy. No suspicious interval change. A negative mammogram in the presence of a clinically suspicious palpable abnormality does not preclude the possibility of malignancy or alter the indications for biopsy. ASSESSMENT: BI-RADS 1: NEGATIVE RECOMMENDATION(S): 1: Routine screening mammogram BILATERAL in 1 year. [facility]amm[facility] location[facility] at [address], [id number] -------- FINAL REPORT -------- Dictated By: Randy Martinez Dictated Date: 06/27/2025 11:05 ET Assigned Physician: Randy Martinez Reviewed and Electronically Signed By: Randy Martinez Signed Date: 06/27/2025 14:28 ET Workstation ID: [id number] Transcribed By: Self Edit Transcribed Date: 06/27/2025 11:05 ET Narrative 06/27/2025 2:28 PM EDT EXAM: SCREENING MAMMOGRAPHY, BILATERAL HISTORY: SCREENING. No additional history. COMPARISON: 05/26/18, 04/25/15 TECHNIQUE: Synthesized CC and MLO projections of each breast. Tomosynthesis of each breast in the CC and MLO projections. ADDITIONAL IMAGING: None Computer-aided detection was employed with the [employer] AI 3-D. TISSUE DENSITY: There are scattered areas of fibroglandular density. (BI-RADS category B) FINDINGS: RIGHT BREAST: No suspicious mass. No suspicious calcification. No distortion. No additional suspicious right breast findings LEFT BREAST: No suspicious mass. No suspicious calcification. No distortion. No additional suspicious left breast findings Procedure Note Randy Martinez MD - 06/27/2025 EXAM: SCREENING MAMMOGRAPHY, BILATERAL HISTORY: SCREENING. No additional history. COMPARISON: 05/26/18, 04/25/15 TECHNIQUE: Synthesized CC and MLO projections of each breast.Tomosynthesis of each breast in the CC and MLO projections. ADDITIONAL IMAGING: None Computer-aided detection was employed with the [employer] AI 3-D. TISSUE DENSITY: There are scattered areas of fibroglandular density.(BI-RADS category B) FINDINGS: RIGHT BREAST: No suspicious mass. No suspicious calcification. No distortion. Noadditional suspicious right breast findings LEFT BREAST: No suspicious mass. No suspicious calcification. No distortion. Noadditional suspicious left breast findings IMPRESSION: No mammographic evidence of malignancy. No suspicious interval change. A negative mammogram in the presence of a clinically suspicious palpableabnormality does not preclude the possibility of malignancy or alter theindications for biopsy. ASSESSMENT: BI-RADS 1: NEGATIVE RECOMMENDATION(S): 1: Routine screening mammogram BILATERAL in 1 year. [facility]amm[facility] location[facility] at [address], [address] -------- FINAL REPORT -------- Dictated By: Randy Martinez Dictated Date: 06/27/2025 11:05 ET Assigned Physician: Randy Martinez Reviewed and Electronically Signed By: Randy Martinez Signed Date: 06/27/2025 14:28 ET Workstation ID: [id number] Transcribed By: Self Edit Transcribed Date: 06/27/2025 11:05 ET Kenyatta Parkinson MD IMG BI PROCEDURES Fin al Result * Pap smear (08/25/2018) 08/25/2018 Narrative HISTORICAL TESTING LAB RESULTING AGENCY - 08/29/2018 5:10 PM EST [id number] THINPREP PAP, IMAGED: NEGATIVE FOR SQUAMOUS INTRAEPITHELIAL [...] DIAGNOSIS. Z12.4, Z01.419, MENOPAUSE STENOTIC CERVICAL OS us Emily Mabry MD LAB CYTOLOGY ORDERABLES Final Result HISTORICAL TESTING LAB RESULTING AGENCY from Last 3 Months or Most Recently Relevant to Health Maintenance Insurance MEDICAID - [place] Care Teams Roll Changer Relationship Specialty Start Date End Date Kenyatta Morin MD [address] [phone] PCP - General Internal Medicine 06/20/25
--- OUTSIDE RECORDS SUMMARY | 2025-08-10 19:49 | XMS_ITS | Encounter Summary ---
Author Organization [facility] Address [address] [facility] [address] [place] [address] Care Team Providers Care Plastic Production Machine Setter Name Role Phone Kenyatta Morin MD Primary Care Provide r Reason for Visit * Reason Onset Date Comments chart prep 08/09/2025 Encounter Details Date Type Department Care Team (Late st Contact Info) Description 08/09/2025 Telephone [facility] [address] [place], [place] [phone] Kenyatta Morin MD [address] [place], [place] [phone] chart prep Social History Tobacco Use Types Packs/Day Years [...] AM EDT documented as of this encounter Miscellaneous Notes * Telephone Encounter - Nydia Finley MA - 08/09/2025 1:53 PM EST Chart Prep Labs: done Images: done Referrals: complete Vaccines due: Covid, Flu, Hep B, RSV, and Zoster Screenings: pap smear and foot exam Overdue care gaps: A1c, Glucose, PHQ-9, SIMBA-7, and Disability screen documented in this encounter Plan of Treatment Not on [...] Care Plan Patient has chronic kidney disease Nydia Bernal MA documented as of this encounter Visit Diagnoses Not on filedocumented in this encounter Additional Health Concerns Active Problems Noted Date Diagnosed Date Help patients manage their type 2 diabetes 08/09 Patient has chronic kidney disease 08/09/2025 Patient has chronic kidney disease 08/09/2025 Assessment Noted Time PHQ-9 Depression Total Score: 6 06/01/20 25 11:11 AM EDT documented as of this encounter Care Teams Plastic Production Machine Setter Relationship Specialty Start Date End Date Kenyatta Morin MD [address] [place] [address] PCP - General Internal Medicine 06/01/25 documented as of this encounter
== END 2025-08-10 16:11 | disposition home or self-care (01) ==
LOC: HO.LNP 16:10
PROVIDERS: Visit Provider Internal Medicine
DX: Z12.4 Encounter for screening for malignant neoplasm of cervix (principal); Z11.51 Encounter for screening for human papillomavirus (HPV)
CPT/HCPCS: 87626; 88175